=== PATIENT | male | born 1980 | race African-American/Black ===

== ENCOUNTER 2017-04-09 21:31 | Emergency (ER) | payer MEDICAID ==
--- NOTE | 2017-04-09 21:43 | ER Document Report ---
ED Seizure - General Mode of Arrival: Medic Information source: Transfer Record, Emergency Med Personnel, [facility] Records TRAVEL OUTSIDE OF THE [place] IN LAST 30 DAYS: No - HPI Patient complains to provider of: History of seizures <MAISHA RODRIGUEZ - Last Filed: 04/09/17 22:10> <KALEY LOPEZ - Last Filed: 04/09/17 23:49> - General Stated Complaint: POSSIBLE SEIZURE Time Seen by Provider: 04/09/17 21:39 Notes: Patient is a 36 year old male presenting to the emergency department for a possible seizure. Patient was brought in by EMS who reports the patient was not acting like himself all week. Patient has a history of TBI, hypertension, dementia, and seizures. Patient was found on the floor at his [facility] and staff are unsure if he had a seizure or not. Patient is non- verbal. Patient is supposed to be taking Keppra but had an undetectable level in the past. Patient has no known drug allergies. Patient is unresponsive and non-verbal so HPI and medical history are limited. (MAISHA RODRIGUEZ) - Related Data Allergies/Adverse Reactions: No Known Allergies Allergy (Verified 11/20/14 14:01) Past Medical History - General Information source: [facility] Records Cannot obtain history due to: Dementia, Other - non-verbal - Social History Smoking Status: Unknown if Ever Smoked Family History: None, Other - Unable to obtain secondary to TBI mentation Patient has suicidal ideation: No Patient has homicidal ideation: No - Past Medical History Cardiac Medical History: Reports: Hx Hypertension Neurological Medical History: Reports: Hx Cerebrovascular Accident, Hx Seizures Renal/ Medical History: Reports: Hx Renal Insufficiency GI Medical History: Reports: Hx Ulcer Psychiatric Medical History: Reports: Hx Dementia Surgical Hx: Negative - Immunizations Hx Diphtheria, Pertussis, Tetanus Vaccination: Yes Hx Pneumococcal Vaccination: 09/15/09 <MAISHA RODRIGUEZ - Last Filed: 04/09/17 22:10> Review of Systems - Review of Systems Constitutional: No symptoms reported EENT: No symptoms reported Cardiovascular: No symptoms reported Respiratory: No symptoms reported Gastrointestinal: No symptoms reported Genitourinary: No symptoms reported Male Genitourinary: No symptoms reported Musculoskeletal: See HPI Skin: No symptoms reported Hematologic/Lymphatic: No symptoms reported Neurological/Psychological: See HPI, Seizure -: Yes All other systems reviewed and negative <MAISHA RODRIGUEZ - Last Filed: 04/09/17 22:10> Physical Exam <MAISHA RODRIGUEZ - Last Filed: 04/09/17 22:10> <KALEY LOPEZ - Last Filed: 04/09/17 23:49> - Vital signs Vitals: Pulse Ox 100 04/09/17 21:38 - Notes Notes: GENERAL: Patient in non-verbal, moving around on the bed with contractures. HEAD: Normocephalic, atraumatic. EYES: Appear normal. Pupils equal, round, and reactive to light. ENT: Moist mucus membranes, tongue midline. NECK: Full range of motion. Supple. Trachea midline. LUNGS: Clear to auscultation bilaterally, no wheezes, rales, or rhonchi. No respiratory distress. HEART: Regular rate and rhythm. No murmurs, gallops, or rubs. ABDOMEN: Soft, non-tender. Non-distended. Normal bowel sounds. EXTREMITIES: Patient has choreoathetotic movement. Contractures of the upper extremities which are worse on the left than the right. Elbows are in flexion and passive straightening is almost possible on the left arm and is not possible on the right due to contractures. Supination of the forearms. Patient picks up legs straight up in the air and kicks them over the railing of the bed. NEUROLOGICAL: Non-verbal. SKIN: Warm, dry, normal turgor. (MAISHA RORDIGUEZ) Course <MAISHA RODRIGUEZ - Last Filed: 04/09/17 22:10> - Laboratory Result Diagrams: 04/09/17 22:30 04/09/17 22:30 <KALEY LOPEZ - Last Filed: 04/09/17 23:49> - Re-evaluation Re-evalutation: 04/09/17 23:43 The patient's CBC, Chem-12, and urinalysis are all unremarkable. He does not have a fever, he does not seem to be exhibiting seizure activity here. The Keppra level is pending as it is a send out. There was no injury detected on physical exam related to him being found on the floor. He will be discharged back to [facility], with recommendation he does not miss Keppra doses and they check with the lab for the Keppra level when it comes back. He should return to the emergency room if any new or worsening symptoms. (KALEY LOPEZ) - Vital Signs Vital signs: Temp Pulse Resp BP Pulse Ox 12 114/95 H 100 04/09/17 23:01 04/09/17 23:01 04/09/17 23:00 - Laboratory Laboratory results interpreted by me: 04/09/17 04/09/17 22:30 22:30 Hgb 13.0 L Eosinophils % 7.7 H Carbon Dioxide 20 L Anion Gap 21 H Calcium 10.5 H Discharge <MAISHA RODRIGUEZ - Last Filed: 04/09/17 22:10> <KALEY LOPEZ - Last Filed: 04/09/17 23:49> - Discharge Clinical Impression: Seizure disorder Fall Qualifiers: Encounter type: initial encounter Qualified Code(s): W19.XXXA - Unspecified fall, initial encounter Condition: Stable Disposition: HOME, SELF-CARE Additional Instructions: There was no injury found on physical exam today. The blood work was normal with no suggestion of infection. The Keppra level is a send out and should be back in a few days. The urine did not show signs of infection and does show he is well hydrated. Be sure not to miss any Keppra doses. Take fall precautions, as the patient did seem to be trying to get off of the stretcher. RETURN TO THE EMERGENCY ROOM IF ANY NEW OR WORSENING SYMPTOMS. Scribe Attestation: 04/09/17 23:48 I personally performed the services described in the documentation, reviewed and edited the documentation which was dictated to the scribe in my presence, and it accurately records my words and actions. (KALEY LOPEZ) Scribe Documentation - Scribe Written by Terrence:: Terrence Campa 21:41 acting as scribe for :: Job <MAISHA RODRIGUEZ - Last Filed: 04/09/17 22:10>
[2017-04-09 22:47] LABS: ABSOLUTE BASOPHILS # (AUTO) 0.1 10^3/uL (0.0-0.2); ABSOLUTE EOSINOPHILS # (AUTO) 0.5 10^3/uL (0.0-0.6); ABSOLUTE LYMPHOCYTES (AUTO) 2.1 10^3/uL (0.5-4.7); ABSOLUTE MONOCYTES (AUTO) 0.5 10^3/uL (0.1-1.4); ABSOLUTE NEUT (AUTO) 3.7 10^3/uL (1.7-8.2); BASOPHILS % (AUTO) 1.2 % (0-2); EOSINOPHILS % (AUTO) 7.7 % (0-6); HEMATOCRIT 39.2 % (37.9-51.0); HGB HCT DIFFERENCE -0.2; LYMPHOCYTES % (AUTO) 30.4 % (13-45); MEAN CORPUSCULAR HEMOGLOBIN 29.3 pg (27.0-33.4); MEAN CORPUSCULAR HGB CONC 33.3 g/dL (32.0-36.0); MEAN CORPUSCULAR VOLUME 88 fl (80-97); MONOCYTES % (AUTO) 6.9 % (3-13); RED BLOOD COUNT 4.44 10^6/uL (4.35-5.55); RED CELL DISTRIBUTION WIDTH 13.7 % (11.5-14.0); SEGMENTED NEUTROPHILS % (AUTO) 53.8 % (42-78); WHITE BLOOD COUNT 6.8 10^3/uL (4.0-10.5)
[2017-04-09 22:55] LABS: ALANINE AMINOTRANSFERASE 36 U/L (21-72); ALBUMIN 4.8 g/dL (3.5-5.0); ALKALINE PHOSPHATASE 54 U/L (38-126); ASPARTATE AMINO TRANSFERASE 41 U/L (17-59); BILIRUBIN,DIRECT 0.3 mg/dL (0.0-0.4); BILIRUBIN,TOTAL 0.4 mg/dL (0.2-1.3); BLOOD UREA NITROGEN 19 mg/dL (7-20); CALCIUM 10.5 mg/dL (8.4-10.2); CARBON DIOXIDE 20 mmol/L (22-30); CHLORIDE 99 mmol/L (98-107); CREATININE RESULT 0.79 mg/dL (0.52-1.25); GLUCOSE 84 mg/dL (75-110); MAGNESIUM 1.8 mg/dL (1.6-2.3); POTASSIUM 4.8 mmol/L (3.6-5.0)
[2017-04-09 22:56] LABS: APPEARANCE,URINE CLEAR; BILIRUBIN,URINE NEGATIVE (NEGATIVE); GLUCOSE, URINE NEGATIVE (NEGATIVE); KETONES,URINE NEGATIVE (NEGATIVE); LEUKOCYTE ESTERASE,URINE NEGATIVE (NEGATIVE); NITRITE,URINE NEGATIVE (NEGATIVE); PROTEIN,URINE NEGATIVE (NEGATIVE); URINE SPECIFIC GRAVITY 1.012; UROBILINOGEN,URINE NEGATIVE mg/dL (<2.0)
[2017-04-09 23:16] LABS: SODIUM 139.5 mmol/L (137-145)
[2017-04-09 23:19] LABS: ANION GAP 21 (5-19)
[2017-04-10 00:15] VITALS: BP 137/82
== END 2017-04-10 00:52 | disposition home or self-care (01) ==
LOC: ER 21:31
DX: G40.909 Epilepsy, unspecified, not intractable, without status epilepticus (principal); Z87.820 Personal history of traumatic brain injury; I10 Essential (primary) hypertension; F03.90 Unspecified dementia, unspecified severity, without behavioral disturbance, psychotic disturbance, mood disturbance, and anxiety; W19.XXXA Unspecified fall, initial encounter
CPT/HCPCS: 36415; 51701; 80053; 80177; 81001; 83735; 85025; 87040; 99285

== ENCOUNTER 2017-06-25 13:23 | Emergency (ER) | payer MEDICAID ==
--- NOTE | 2017-06-25 13:29 | ER Document Report ---
ED Seizure - General Mode of Arrival: Ambulatory Information source: Patient <KATHYA CHAO - Last Filed: 06/25/17 13:35> <KALEY LOPEZ - Last Filed: 06/25/17 18:06> - General Stated Complaint: POSSIBLE SEIZURE Notes: Patient is a 36-year-old male who presents to the emergency department today with complaints of multiple seizures prior to arrival. Patient has been seen here in the past for seizures and was supposed to be on Keppra according to records. According to records, patient's levels of Keppra in the past have been undetectable. The last time the patient was seen here, 3 months ago, the patient's Keppra levels were just barely therapeutic. Patient has a history of cortical blindness and CVA. Patient is demented, likely at baseline. Patient is a resident at [facility] and they were called today secondary to the patient "being lethargic". EMS reports on arrival, the patient began seizing. EMS reports the patient had multiple seizures before arrival here, lasting approximately 20 seconds long. EMS states the patient began grunting, arched his back, and had convulsions. According to staff at the [facility], they state the patient has been "not acting right" all week but it is unclear what exactly was not right. [facility] did state that other residents at [facility] have also had similar symptoms this week. (KATHYA CHAO) On the patient's last admission in May 2016, DO NOT INTUBATE, CPR only status. There are no records sent with the patient, however reviewing past ER visits and admissions, I was able to find one entry stating the patient only mumbled, and another entry which stated he answers questions with one word, yes. There was also documentation that that was his baseline, despite a history and physical on the same chart stating that he was alert and oriented. (KALEY LOPEZ) - Related Data Allergies/Adverse Reactions: No Known Allergies Allergy (Verified 11/20/14 14:01) Past Medical History - General Information source: [facility] Records Cannot obtain history due to: Dementia, Mentally challenged - Social History Smoking Status: Never Smoker Cigarette use (# per day): No Frequency of alcohol use: None Drug Abuse: None Lives with: Family Family History: None, Other - Unable to obtain secondary to TBI mentation - Past Medical History Cardiac Medical History: Reports: Hx Hypertension Neurological Medical History: Reports: Hx Cerebrovascular Accident, Hx Seizures Renal/ Medical History: Reports: Hx Renal Insufficiency GI Medical History: Reports: Hx Ulcer Psychiatric Medical History: Reports: Hx Dementia Surgical Hx: Negative - Immunizations Hx Diphtheria, Pertussis, Tetanus Vaccination: Yes Hx Pneumococcal Vaccination: 09/15/09 <KATHYA CHAO - Last Filed: 06/25/17 13:35> Pulmonary Medical History: Reports: None EENT Medical History: Reports: Eyes - Cortical blindness Endocrine Medical History: Reports: None <JOHNKALEY De Dios - Last Filed: 06/25/17 18:06> Review of Systems - Review of Systems -: Yes ROS unobtainable due to patient's medical condition <KATHYA CHAO - Last Filed: 06/25/17 13:35> - Review of Systems -: Yes ROS unobtainable due to patient's medical condition <JOHNKALEY - Last Filed: 06/25/17 18:06> Physical Exam <KATHYA CHAO - Last Filed: 06/25/17 13:35> - HEENT Head: Normocephalic, Atraumatic Eyes: Other - Patient is blind. There is no nystagmus or twitching of his eyes at this time. Pupils are 4 mm and sluggishly active. Pupils: PERRL Neck: Normal, Supple - Respiratory Respiratory status: Tachypnea Chest status: Nontender Breath sounds: Normal - Cardiovascular Rhythm: Regular, Tachycardia Heart sounds: Normal auscultation Murmur: No - Abdominal Inspection: Normal Distension: No distension Bowel sounds: Normal Tenderness: Nontender - There is no tenderness to deep palpation in all quadrants of the abdomen. No: Guarding - Genitourinary Inspection: Normal - Back Back: Normal - Extremities General upper extremity: Normal inspection, Normal temperature - Psychological Associated symptoms: Other - Cannot be evaluated due to the patient's underlying medical problems - Skin Skin Temperature: Warm Skin Moisture: Dry Skin Color: Normal <JOHNKALEY De Dios - Last Filed: 06/25/17 18:06> - Vital signs Vitals: Resp BP 37 H 127/77 H 06/25/17 13:24 06/25/17 13:24 - General Notes: The patient responds to painful noxious stimulus only. He does not talk. He is blind. At the time of arrival he is hyperventilating with respiratory rate of 40 and a heart rate of 133. (KALEY LOPEZ) - Neurological Notes: There is no hyperreflexia, Babinski test is negative, there is no clonus. He does seem to move all extremities. He is blind, he most likely is postictal, he did receive a total of 5 mg of Versed so a neurological evaluation is not particularly reliable at this time. ( KALEY LOPEZ) Course <ZHANNAKATHYA THURMAN - Last Filed: 06/25/17 13:35> - Laboratory Result Diagrams: 06/25/17 13:45 06/25/17 13:45 - Diagnostic Test Radiology reviewed: Image reviewed - Chest x-ray is unremarkable - EKG Interpretation by Me EKG shows normal: Sinus rhythm, [place], Intervals, ST-T Waves. abnormal: QRS Complexes - Inferior T-wave inversions Rate: Tachycardia - 131 When compared to previous EKG there are: Changes noted - The inferior T-wave inversions are new compared to the last EKG done here in May 2016. <KALEY LOPEZ - Last Filed: 06/25/17 18:06> - Re-evaluation Re-evalutation: 06/25/17 16:56 After the patient had received 1 L of IV fluid, and 1 amp of sodium bicarb, his respiratory rate was down to 20 and his heart rate was down to about 116. He was found to have a temperature at fell to 96.7 so the bear hugger was placed on him. 06/25/17 17:29 After discussing the patient with the hospitalist who felt the patient may need intubation and wanted him transferred, I ordered an ABG. The nurse was unable to obtain the blood gas, so I obtained the ABG from the right radial artery. It pumped up easily and was oxygenated red in color. 06/25/17 18:01 The patient was discussed with Dr. Street on 2 occasions, he is unwilling to admit the patietient, initially feeling the patient might need intubation, I found a note from May 2016 that the patient was a DO NOT INTUBATE, CPR only patient. The second call he stated that that the patient might need neurology services which we do not have at this facility. (KALEY LOPEZ) - Vital Signs Vital signs: Temp Pulse Resp BP Pulse Ox 97.1 F 19 114/65 99 06/25/17 14:02 06/25/17 17:24 06/25/17 17:24 06/25/17 17:24 - Laboratory Laboratory results interpreted by me: 06/25/17 06/25/17 06/25/17 13:45 13:45 13:45 WBC 13.2 H RBC 4.24 L Hgb 12.4 L Plt Count 523 H Absolute Neutrophils 9.1 H ABG pCO2 ABG pO2 ABG Total CO2 VBG pH VBG HCO3 Potassium 5.8 H Carbon Dioxide < 5 L* Lactic Acid 23.0 H Calcium 10.5 H Magnesium 2.5 H Creatine Kinase Urine Protein Urine Blood 06/25/17 06/25/17 06/25/17 13:45 14:05 15:20 WBC RBC Hgb Plt Count Absolute Neutrophils ABG pCO2 ABG pO2 ABG Total CO2 VBG pH 7.16 L* VBG HCO3 13.6 L Potassium Carbon Dioxide Lactic Acid Calcium Magnesium Creatine Kinase 500 H Urine Protein 30 H Urine Blood MODERATE H 06/25/17 17:25 WBC RBC Hgb Plt Count Absolute Neutrophils ABG pCO2 34.9 L ABG pO2 77.9 L ABG Total CO2 21.1 L VBG pH VBG HCO3 Potassium Carbon Dioxide Lactic Acid Calcium Magnesium Creatine Kinase Urine Protein Urine Blood - Transfer of Care Notes: 06/25/17 18:03 CT scan will be done prior to making phone calls to try to get someone somewhere to accept this patient. (KALEY LOPEZ) Critical Care Note - Critical Care Note Total time excluding time spent on procedures (mins): 45 <KALEY LOPEZ - Last Filed: 06/25/17 18:06> Discharge <KATHYA CHAO - Last Filed: 06/25/17 13:35> <KALEY LOPEZ - Last Filed: 06/25/17 18:06> - Discharge Clinical Impression: Recurrent seizures, Lactic acidosis Altered mental status Qualifiers: Altered mental status type: unspecified Qualified Code(s): R41.82 - Altered mental status, unspecified Scribe Documentation - Scribe Written by Scribe:: Terrence Rock, 06/25/2017 1342 acting as scribe for :: John <KATHYA CHAO - Last Filed: 06/25/17 13:35>
[2017-06-25 14:13] LABS: ABSOLUTE BASOPHILS # (AUTO) 0.1 10^3/uL (0.0-0.2); ABSOLUTE EOSINOPHILS # (AUTO) 0.6 10^3/uL (0.0-0.6); ABSOLUTE LYMPHOCYTES (AUTO) 2.6 10^3/uL (0.5-4.7); ABSOLUTE MONOCYTES (AUTO) 0.8 10^3/uL (0.1-1.4); ABSOLUTE NEUT (AUTO) 9.1 10^3/uL (1.7-8.2); EOSINOPHILS % (AUTO) 4.4 % (0-6); HEMATOCRIT 38.2 % (37.9-51.0); HEMOGLOBIN 12.4 g/dL (13.5-17.0); LYMPHOCYTES % (AUTO) 19.6 % (13-45); MEAN CORPUSCULAR HEMOGLOBIN 29.2 pg (27.0-33.4); MEAN CORPUSCULAR HGB CONC 32.4 g/dL (32.0-36.0); MEAN CORPUSCULAR VOLUME 90 fl (80-97); MONOCYTES % (AUTO) 6.3 % (3-13); RED BLOOD COUNT 4.24 10^6/uL (4.35-5.55); RED CELL DISTRIBUTION WIDTH 13.8 % (11.5-14.0); SEGMENTED NEUTROPHILS % (AUTO) 68.7 % (42-78); WHITE BLOOD COUNT 13.2 10^3/uL (4.0-10.5)
[2017-06-25 14:21] LABS: ALANINE AMINOTRANSFERASE 27 U/L (21-72); ALBUMIN 4.8 g/dL (3.5-5.0); ALKALINE PHOSPHATASE 56 U/L (38-126); ASPARTATE AMINO TRANSFERASE 29 U/L (17-59); BILIRUBIN,DIRECT 0.3 mg/dL (0.0-0.4); BILIRUBIN,TOTAL 0.3 mg/dL (0.2-1.3); BLOOD UREA NITROGEN 13 mg/dL (7-20); CALCIUM 10.5 mg/dL (8.4-10.2); CHLORIDE 100 mmol/L (98-107); CREATININE RESULT 1.18 mg/dL (0.52-1.25); GLUCOSE 84 mg/dL (75-110); MAGNESIUM 2.5 mg/dL (1.6-2.3); POTASSIUM 5.8 mmol/L (3.6-5.0); SODIUM 142.1 mmol/L (137-145); TOTAL PROTEIN 7.7 g/dL (6.3-8.2)
[2017-06-25] MEDS ORDERED: LEVETIRACETAM 500 MG/NACL-ISO 500 MG/100 ML RTUPB IV ONE (14:24)
--- NOTE | 2017-06-25 14:30 | RADIOLOGY REPORT (SQ) ---
EXAM DESCRIPTION: CHEST SINGLE VIEW COMPLETED DATE/TIME: 06/25/2017 1:55 pm REASON FOR STUDY: POST ICTAL , SEIZURE COMPARISON: 02/05/2012, 02/14/2012, 06/02/2016 EXAM PARAMETERS: NUMBER OF VIEWS: One view. TECHNIQUE: Single frontal radiographic view of the chest acquired. RADIATION DOSE: NA LIMITATIONS: None. FINDINGS: LUNGS AND PLEURA: Obstructive lung disease, hyperinflation in the right mid lung. No acute infiltrates. No pleural effusion. No pneumothorax. MEDIASTINUM AND HILAR STRUCTURES: No masses. Contour normal. HEART AND VASCULAR STRUCTURES: Heart normal in size. Normal vasculature. BONES: No acute findings. HARDWARE: None in the chest. OTHER: No other significant finding. IMPRESSION: No acute changes TECHNICAL DOCUMENTATION: JOB ID: [id number]
[2017-06-25 14:33] LABS: APPEARANCE,URINE CLEAR; BILIRUBIN,URINE NEGATIVE (NEGATIVE); GLUCOSE, URINE NEGATIVE (NEGATIVE); KETONES,URINE NEGATIVE (NEGATIVE); LEUKOCYTE ESTERASE,URINE NEGATIVE (NEGATIVE); NITRITE,URINE NEGATIVE (NEGATIVE); PROTEIN,URINE 30 mg/dL (NEGATIVE); URINE SPECIFIC GRAVITY 1.009; UROBILINOGEN,URINE NEGATIVE mg/dL (<2.0)
[2017-06-25 14:43] LABS: CARBON DIOXIDE < 5 mmol/L (22-30)
[2017-06-25] MEDS ORDERED: LORAZEPAM INJ 2 MG/1 ML VIAL ONE (14:51)
[2017-06-25] MEDS ORDERED: LORAZEPAM INJ 2 MG/1 ML VIAL IV ONE (14:57)
[2017-06-25] MEDS ORDERED: NORMAL SALINE 1000 ML 1,000 ML IV ONE (15:10)
[2017-06-25 15:56] LABS: VENOUS BLOOD BASE EXCESS -14.3 mmol/L; VENOUS BLOOD HCO3 13.6 mmol/L (20-32); VENOUS BLOOD PCO2 38.9 mmHg (35-63)
[2017-06-25 15:57] LABS: VENOUS BLOOD PH 7.16 (7.30-7.42)
[2017-06-25] MEDS ORDERED: SODIUM BICARBONATE 8.4% INJ 50 MEQ/50 ML DISP.SYRIN IV ONE (15:58)
[2017-06-25 16:24] LABS: ADD ON TESTING BLD IN LAB ACKNOWLEDGE
[2017-06-25 16:48] LABS: CREATINE KINASE 500 U/L (55-170)
[2017-06-25] MEDS ORDERED: CEFTRIAXONE 1 GM/D5W RTU 1 GM/50 ML RTUPB IV ONE (17:29)
[2017-06-25 17:40] LABS: ARTERIAL BLOOD BASE EXCESS -4.5 mmol/L; ARTERIAL BLOOD O2 SATURATION 95.4 % (94-98)
--- NOTE | 2017-06-25 18:24 | ER Document Report ---
ED General - General Chief Complaint: Probable Seizure Stated Complaint: POSSIBLE SEIZURE Time Seen by Provider: 06/25/17 13:33 Mode of Arrival: Ambulatory Notes: Received patient did sign out at [address] and disposal. Patient reportedly had altered mental status at nursing facility. Off of his baseline. Reportedly having seizures on arrival. EMS gave medications. Has been observed in the ED where he received an initial 2 mg of Ativan. Had a profound acidosis at 7.1 with extremely elevated lactic acid. Patient received fluids and monitoring. Was consulted for admission but admission was refused. TRAVEL OUTSIDE OF THE [place] IN LAST 30 DAYS: No - Related Data Allergies/Adverse Reactions: No Known Allergies Allergy (Verified 11/20/14 14:01) Past Medical History - General Information source: Legal Guardian, [facility] Records - Social History Smoking Status: Never Smoker Cigarette use (# per day): No Frequency of alcohol use: None Drug Abuse: None Lives with: Family Family History: None, Other - Unable to obtain secondary to TBI mentation - Past Medical History Cardiac Medical History: Reports: Hx Hypertension Pulmonary Medical History: Reports: None EENT Medical History: Reports: Eyes - Cortical blindness Neurological Medical History: Reports: Hx Cerebrovascular Accident, Hx Seizures Endocrine Medical History: Reports: None Renal/ Medical History: Reports: Hx Renal Insufficiency. Denies: Hx Peritoneal Dialysis GI Medical History: Reports: Hx Ulcer Psychiatric Medical History: Reports: Hx Dementia, Hx Depression Surgical Hx: Negative - Immunizations Hx Diphtheria, Pertussis, Tetanus Vaccination: Yes Hx Pneumococcal Vaccination: 09/15/09 Review of Systems - Review of Systems -: Yes ROS unobtainable due to patient's medical condition Physical Exam - Vital signs Vitals: Resp BP 37 H 127/77 H 06/25/17 13:24 06/25/17 13:24 Interpretation: Normal - General General appearance: Lethargic, Unresponsive. No: Alert - HEENT Head: Normocephalic, Atraumatic Eyes: Normal - Respiratory Respiratory status: No respiratory distress Chest status: Nontender Breath sounds: Normal Chest palpation: Normal - Cardiovascular Rhythm: Regular Heart sounds: Normal auscultation Murmur: No - Abdominal Inspection: Normal Distension: No distension Bowel sounds: Normal Tenderness: Nontender Organomegaly: No organomegaly - Back Back: Normal, Nontender - Extremities General upper extremity: Normal inspection, Nontender, Normal color, Normal temperature. No: Normal ROM - Patient with bilateral upper extremity contractures General lower extremity: Normal inspection, Nontender, Normal color, Normal temperature. No: Normal ROM, Normal weight bearing, Suzan's sign - Neurological Neuro grossly intact: Yes Cognition: Normal, Inattentive Orientation: AAOx4. No: Disoriented to person, Disoriented to place, Disoriented to time, Disoriented to events Tin Coma Scale Eye Opening: Spontaneous [place] Coma Scale Verbal: Incomprehensible Tin Coma Scale Motor: Abnormal Flexion Tin Coma Scale Total: 9 Speech: Normal. No: Dysarthria, Expressive aphasia Motor strength normal: No: LUE, RUE, LLE, RLE Sensory: Other. No: Normal - Unable to cooperate - Psychological Associated symptoms: Uncooperative. No: Normal affect, Normal mood - Skin Skin Temperature: Warm - No obvious skin lesions Skin Moisture: Dry Skin Color: Normal Course - Re-evaluation Re-evalutation: 06/25/17 19:46 Labs- All tests 24 hr 06/25/17 06/25/17 06/25/17 13:45 13:45 13:45 WBC 13.2 H RBC 4.24 L Hgb 12.4 L Hct 38.2 MCV 90 MCH 29.2 MCHC 32.4 RDW 13.8 Plt Count 523 H Seg Neutrophils % 68.7 Lymphocytes % 19.6 Monocytes % 6.3 Eosinophils % 4.4 Basophils % 1.0 Absolute Neutrophils 9.1 H Absolute Lymphocytes 2.6 Absolute Monocytes 0.8 Absolute Eosinophils 0.6 Absolute Basophils 0.1 Carbonic Acid HCO3/H2CO3 Ratio ABG pH ABG pCO2 ABG pO2 ABG HCO3 ABG Total CO2 ABG O2 Saturation ABG Base Excess VBG pH VBG pCO2 VBG HCO3 VBG Base Excess FiO2 Sodium 142.1 Potassium 5.8 H Chloride 100 Carbon Dioxide < 5 L* Anion Gap Not Reportable BUN 13 Creatinine 1.18 Est GFR ( Amer) > 60 Est GFR (Non-Af Amer) > 60 Glucose 84 Lactic Acid 23.0 H Calcium 10.5 H Magnesium 2.5 H Total Bilirubin 0.3 Direct Bilirubin 0.3 Indirect Bilirubin Not Reportable Neonat Total Bilirubin Not Reportable AST 29 ALT 27 Alkaline Phosphatase 56 Creatine Kinase Total Protein 7.7 Albumin 4.8 Urine Color Urine Appearance Urine pH Ur Specific [place] Urine Protein Urine Glucose (UA) Urine Ketones Urine Blood Urine Nitrite Urine Bilirubin Urine Urobilinogen Ur Leukocyte Esterase Urine WBC (Auto) Urine RBC (Auto) Squamous Epi Cells Auto Urine Mucus (Auto) Urine Ascorbic Acid 06/25/17 06/25/17 06/25/17 13:45 14:05 15:20 WBC RBC Hgb Hct MCV MCH MCHC RDW Plt Count Seg Neutrophils % Lymphocytes % Monocytes % Eosinophils % Basophils % Absolute Neutrophils Absolute Lymphocytes Absolute Monocytes Absolute Eosinophils Absolute Basophils Carbonic Acid HCO3/H2CO3 Ratio ABG pH ABG pCO2 ABG pO2 ABG HCO3 ABG Total CO2 ABG O2 Saturation ABG Base Excess VBG pH 7.16 L* VBG pCO2 38.9 VBG HCO3 13.6 L VBG Base Excess -14.3 FiO2 Sodium Potassium Chloride Carbon Dioxide Anion Gap BUN Creatinine Est GFR ( Amer) Est GFR (Non-Af Amer) Glucose Lactic Acid Calcium Magnesium Total Bilirubin Direct Bilirubin Indirect Bilirubin Neonat Total Bilirubin AST ALT Alkaline Phosphatase Creatine Kinase 500 H Total Protein Albumin Urine Color STRAW Urine Appearance CLEAR Urine pH 6.0 Ur Specific [place] 1.009 Urine Protein 30 H Urine Glucose (UA) NEGATIVE Urine Ketones NEGATIVE Urine Blood MODERATE H Urine Nitrite NEGATIVE Urine Bilirubin NEGATIVE Urine Urobilinogen NEGATIVE Ur Leukocyte Esterase NEGATIVE Urine WBC (Auto) 1 Urine RBC (Auto) 1 Squamous Epi Cells Auto <1 Urine Mucus (Auto) RARE Urine Ascorbic Acid NEGATIVE 06/25/17 06/25/17 17:25 17:54 WBC RBC Hgb Hct MCV MCH MCHC RDW Plt Count Seg Neutrophils % Lymphocytes % Monocytes % Eosinophils % Basophils % Absolute Neutrophils Absolute Lymphocytes Absolute Monocytes Absolute Eosinophils Absolute Basophils Carbonic Acid 1.05 HCO3/H2CO3 Ratio 19:1 ABG pH 7.38 ABG pCO2 34.9 L ABG pO2 77.9 L ABG HCO3 20.0 ABG Total CO2 21.1 L ABG O2 Saturation 95.4 ABG Base Excess -4.5 VBG pH VBG pCO2 VBG HCO3 VBG Base Excess FiO2 ROOM AIR Sodium Potassium Chloride Carbon Dioxide Anion Gap BUN Creatinine Est GFR ( Amer) Est GFR (Non-Af Amer) Glucose Lactic Acid 3.5 H Calcium Magnesium Total Bilirubin Direct Bilirubin Indirect Bilirubin Neonat Total Bilirubin AST ALT Alkaline Phosphatase Creatine Kinase Total Protein Albumin Urine Color Urine Appearance Urine pH Ur Specific [place] Urine Protein Urine Glucose (UA) Urine Ketones Urine Blood Urine Nitrite Urine Bilirubin Urine Urobilinogen Ur Leukocyte Esterase Urine WBC (Auto) Urine RBC (Auto) Squamous Epi Cells Auto Urine Mucus (Auto) Urine Ascorbic Acid Chest X-Ray 06/25/17 13:37 IMPRESSION: No acute changes Head CT 06/25/17 18:20 IMPRESSION: No evidence of acute ischemic event or intracranial hemorrhage. Re - demonstration of large areas of encephalomalacia involving the bilateral temporal, parietal, and occipital lobes, consistent with sequela of remote ischemic events. EVIDENCE OF ACUTE STROKE: NO. 06/25/17 21:33 Patient has been accepted as a admit to the PCU bed seventh floor stroke unit at [facility], Dr. Mark is the accepting. Awaiting transfer at this time - Vital Signs Vital signs: Temp Pulse Resp BP Pulse Ox 97.1 F 16 115/70 99 06/25/17 14:02 06/25/17 22:01 06/25/17 22:01 06/25/17 22:01 - Laboratory Result Diagrams: 06/25/17 13:45 06/25/17 13:45 Laboratory results interpreted by me: 06/25/17 06/25/17 06/25/17 13:45 13:45 13:45 WBC 13.2 H RBC 4.24 L Hgb 12.4 L Plt Count 523 H Absolute Neutrophils 9.1 H ABG pCO2 ABG pO2 ABG Total CO2 ABG O2 Saturation VBG pH VBG HCO3 Potassium 5.8 H Carbon Dioxide < 5 L* Lactic Acid 23.0 H Calcium 10.5 H Magnesium 2.5 H Creatine Kinase Urine Protein Urine Blood 06/25/17 06/25/17 06/25/17 13:45 14:05 15:20 WBC RBC Hgb Plt Count Absolute Neutrophils ABG pCO2 ABG pO2 ABG Total CO2 ABG O2 Saturation VBG pH 7.16 L* VBG HCO3 13.6 L Potassium Carbon Dioxide Lactic Acid Calcium Magnesium Creatine Kinase 500 H Urine Protein 30 H Urine Blood MODERATE H 06/25/17 06/25/17 06/25/17 17:25 17:54 20:13 WBC RBC Hgb Plt Count Absolute Neutrophils ABG pCO2 34.9 L ABG pO2 77.9 L 135.6 H ABG Total CO2 21.1 L 21.8 L ABG O2 Saturation 98.7 H VBG pH VBG HCO3 Potassium Carbon Dioxide Lactic Acid 3.5 H Calcium Magnesium Creatine Kinase Urine Protein Urine Blood Discharge - Discharge Clinical Impression: Recurrent seizures, Lactic acidosis Altered mental status Qualifiers: Altered mental status type: unspecified Qualified Code(s): R41.82 - Altered mental status, unspecified Disposition: [facility] Admitting Provider: Jas
--- NOTE | 2017-06-25 19:08 | RADIOLOGY REPORT (SQ) ---
EXAM DESCRIPTION: CT HEAD WITHOUT COMPLETED DATE/TIME: 06/25/2017 6:41 pm REASON FOR STUDY: AMS COMPARISON: [id number], 10/03/2011 TECHNIQUE: Axial images acquired through the brain without intravenous contrast. Images reviewed wi th bone, brain and subdural windows. Images stored on PACS. All CT scanners at this facility use dose modulation, iterative reconstruction, and/or weight based d osing when appropriate to reduce radiation dose to as low as reasonably achievable (ALARA). [facility]: Dose Right [facility]: CareDose [facility]: Dose Right [facility]: Teradose 4D [facility]: [employer] RADIATION DOSE: Up-to-date CT equipment and radiation dose reduction techniques were employed. CTDIv ol: 64.6 mGy. DLP: 1034 mGy-cm. mGy. LIMITATIONS: None. FINDINGS: VENTRICLES: Prominent. CEREBRUM: No masses. No hemorrhage. No midline shift. No evidence for acute infarction. Re- demons tration of large areas of encephalomalacia involving bilateral temporal, parietal, and occipital lobe s. CEREBELLUM: No masses. No hemorrhage. No alteration of density. No evidence for acute infarction. EXTRAAXIAL SPACES: No fluid collections. No masses. ORBITS AND GLOBE: No intra- or extraconal masses. Normal contour of globe without masses. CALVARIUM: No fracture. PARANASAL SINUSES: No fluid or mucosal thickening. SOFT TISSUES: No mass or hematoma. OTHER: No other significant finding. IMPRESSION: No evidence of acute ischemic event or intracranial hemorrhage. Re- demonstration of la rge areas of encephalomalacia involving the bilateral temporal, parietal, and occipital lobes, consis tent with sequela of remote ischemic events. EVIDENCE OF ACUTE STROKE: NO. COMMENT: Quality ID # [id number]: Final reports with documentation of one or more dose reduction techniques (e.g., Automated exposure control, adjustment of the mA and/or kV according to patient size, use of iterative reconstruction technique) TECHNICAL DOCUMENTATION: JOB ID: [id number]- All Rights Reserved
[2017-06-25 20:32] LABS: PROTHROMBIN TIME 13.7 SEC (11.4-15.4)
[2017-06-25 21:44] LABS: ARTERIAL BLOOD BASE EXCESS -3.5 mmol/L; ARTERIAL BLOOD O2 SATURATION 98.7 % (94-98)
[2017-06-26 00:24] VITALS: BP 123/78
--- NOTE | 2017-06-27 08:08 | EKG REPORT ---
SEVERITY:- ABNORMAL ECG - SINUS TACHYCARDIA ANTERIOR INFARCT, AGE INDETERMINATE VS LVH ABNORMAL T, CONSIDER ISCHEMIA, INFERIOR LEADS : Confirmed by: Deejay May 27-Jun-2017 08:08:31
== END 2017-06-26 00:27 | disposition short-term general hospital (02) ==
LOC: ER 13:23
DX: G40.909 Epilepsy, unspecified, not intractable, without status epilepticus (principal); E87.2 Acidosis; G93.89 Other specified disorders of brain; R41.82 Altered mental status, unspecified; I10 Essential (primary) hypertension; Z86.73 Personal history of transient ischemic attack (TIA), and cerebral infarction without residual deficits
CPT/HCPCS: 99291; 96361; 96375; 96365; 96367; 36415; 87040; 80177; 82803 ×2; 82550; 83605 ×2; 83735; 85025; 85610; 87077; 80053; 81001; 71010; 70450; 93010; J2060; J3490; J7030; J0696; J1953; 87186

== ENCOUNTER 2017-10-11 19:37 | Emergency (ER) | payer MEDICAID ==
[2017-10-11] MEDS ORDERED: NORMAL SALINE 1000 ML 1,000 ML IV ONE ×2 (20:25→23:39)
[2017-10-11 20:53] LABS: ABSOLUTE BASOPHILS # (AUTO) 0.1 10^3/uL (0.0-0.2); ABSOLUTE EOSINOPHILS # (AUTO) 0.4 10^3/uL (0.0-0.6); ABSOLUTE LYMPHOCYTES (AUTO) 0.9 10^3/uL (0.5-4.7); ABSOLUTE MONOCYTES (AUTO) 0.7 10^3/uL (0.1-1.4); ABSOLUTE NEUT (AUTO) 5.9 10^3/uL (1.7-8.2); BASOPHILS % (AUTO) 0.9 % (0-2); EOSINOPHILS % (AUTO) 4.7 % (0-6); HEMATOCRIT 40.3 % (37.9-51.0); HEMOGLOBIN 13.6 g/dL (13.5-17.0); LYMPHOCYTES % (AUTO) 11.7 % (13-45); MEAN CORPUSCULAR HEMOGLOBIN 28.7 pg (27.0-33.4); MEAN CORPUSCULAR HGB CONC 33.7 g/dL (32.0-36.0); MEAN CORPUSCULAR VOLUME 85 fl (80-97); MONOCYTES % (AUTO) 8.8 % (3-13); PLATELET COUNT 441 10^3/uL (150-450); RED BLOOD COUNT 4.74 10^6/uL (4.35-5.55); RED CELL DISTRIBUTION WIDTH 15.1 % (11.5-14.0); SEGMENTED NEUTROPHILS % (AUTO) 73.9 % (42-78); TOTAL CELLS COUNTED % (AUTO) 100 %
[2017-10-11 20:57] LABS: VENOUS BLOOD BASE EXCESS -3.5 mmol/L; VENOUS BLOOD PCO2 47.2 mmHg (35-63); VENOUS BLOOD PH 7.31 (7.30-7.42)
--- NOTE | 2017-10-11 21:01 | ER Document Report ---
ED General - General Chief Complaint: Nausea/Vomiting/Diarrhea Stated Complaint: NAUSEA,VOMITING Time Seen by Provider: 10/11/17 19:50 Cannot obtain history due to: Mentally challenged, Other - Non-verbal Notes: Patient is a 36-year-old male with a past medical history of traumatic brain injury, nonverbal, nonambulatory at baseline. He presents with reports of fever , vomiting and diarrhea. He also had a seizure immediately prior to arrival. He has a history of seizures at baseline. He currently resides in the [facility]. Multiple additional residents have been sick with same symptoms. History is otherwise limited as patient is nonverbal. TRAVEL OUTSIDE OF THE [place] IN LAST 30 DAYS: No - Related Data Allergies/Adverse Reactions: No Known Allergies Allergy (Verified 11/20/14 14:01) Past Medical History - General Information source: Transfer Record, Emergency Med Personnel Cannot obtain history due to: Mentally challenged - Social History Smoking Status: Never Smoker Frequency of alcohol use: None Drug Abuse: None Lives with: Intermediate Family History: Reviewed & Not Pertinent, Other - Unable to obtain secondary to TBI mentation - Past Medical History Cardiac Medical History: Reports: Hx Hypertension Neurological Medical History: Reports: Hx Cerebrovascular Accident, Hx Seizures Renal/ Medical History: Reports: Hx Renal Insufficiency. Denies: Hx Peritoneal Dialysis GI Medical History: Reports: Hx Ulcer Psychiatric Medical History: Reports: Hx Dementia, Hx Depression - Immunizations Hx Diphtheria, Pertussis, Tetanus Vaccination: Yes Hx Pneumococcal Vaccination: 09/15/09 Review of Systems - Review of Systems -: Yes ROS unobtainable due to patient's medical condition Physical Exam - Vital signs Vitals: Resp 17 10/11/17 19:42 Interpretation: Tachycardic, Febrile Notes: PHYSICAL EXAMINATION: GENERAL: Chronically ill, contracted, nonverbal, no distress HEAD: Atraumatic, normocephalic. EYES: Pupils equal round and reactive to light, extraocular movements intact, sclera anicteric, conjunctiva are normal. ENT: nares patent, oropharynx clear without exudates. Moderately dry mucous membranes. NECK: supple without lymphadenopathy LUNGS: Breath sounds clear to auscultation bilaterally and equal. No wheezes rales or rhonchi. HEART: Regular tachycardia without murmurs ABDOMEN: Soft, nontender, normoactive bowel sounds. No guarding, no rebound. No masses appreciated. EXTREMITIES: Contracted in all 4 extremities NEUROLOGICAL: Does not follow commands. PSYCH: Nonverbal SKIN: Warm, Dry, normal turgor, no skin breakdown noted in the sacral region, buttocks or low back. Course - Re-evaluation Re-evalutation: 10/11/17 21:00 Patient is a chronically ill 36-year-old male nonverbal, bedbound at baseline who presents with nausea, vomiting, diarrhea and fever from his nursing facility. He also apparently had a witnessed seizure today. He does have a history of seizures at baseline. Another resident at the same facility is also arrived with the same symptoms. Proceed with labs, IV fluids, chest x-ray, flu testing, and reassess the patient. 10/12/17 00:41 Labs are all unremarkable with exception initially of an elevated lactate. I suspect that this is secondary to the patient having a seizure immediately prior to arrival as on a repeat lactate several hours after the initial it has completely normalized at 1.7. The only intervention was IV fluids. Patient has no obvious source for his temperature. Chest x-ray is clear, urinalysis unremarkable, skin exam without any evidence of decubitus ulcers or wounds, no cellulitis, throat exam unremarkable. Patient has not had any further episodes of vomiting or diarrhea here in the emergency department. I suspect that he likely has influenza or similar viral infection despite a negative flu test as our flu sensitivity this year is quite low. Again several residents in his facility have had the exact same symptoms including a patient that I saw at the same time as this patient. Will discharge back to the facility with strict return precautions and follow-up recommendations. - Vital Signs Vital signs: Temp Pulse Resp BP Pulse Ox 100.8 F H 18 166/92 H 99 10/12/17 02:09 10/12/17 02:09 10/12/17 02:09 10/12/17 02:09 - Laboratory Result Diagrams: 10/11/17 20:40 10/11/17 20:40 Laboratory results interpreted by me: 10/11/17 10/11/17 10/11/17 20:40 20:40 20:40 RDW 15.1 H Lymphocytes % 11.7 L BUN 25 H Lactic Acid 4.4 H Calcium 11.2 H - Diagnostic Test Radiology reviewed: Image reviewed, Reports reviewed Radiology results interpreted by me: 10/12/17 00:40 Chest x-ray: No acute infiltrate or pneumothorax Discharge - Discharge Clinical Impression: Seizure disorder, Vomiting and diarrhea Fever Qualifiers: Fever type: unspecified Qualified Code(s): R50.9 - Fever, unspecified Condition: Stable Disposition: HOME, SELF-CARE Additional Instructions: Your symptoms are likely due to a viral infection either influenza or similar virus. The only treatment at this time is supportive care including drinking plenty of fluids, Tylenol and ibuprofen, as well as nausea medicines which you will be sent home with. Your symptoms will likely last for 7-10 days. Return for worsening of your symptoms, inability to tolerate oral fluids, or any other symptoms that are concerning. Prescriptions: Ondansetron [Zofran Odt 4 mg Tablet] 1 - 2 tab PO Q4H PRN #15 tab.rapdis PRN Reason: For Nausea/Vomiting Referrals: PEGGY SÁNCHEZ MD [Primary Care Provider] - Follow up as needed
[2017-10-11 21:14] LABS: ANION GAP 16 (5-19); BLOOD UREA NITROGEN 25 mg/dL (7-20); CALCIUM 11.2 mg/dL (8.4-10.2); CARBON DIOXIDE 23 mmol/L (22-30); CHLORIDE 101 mmol/L (98-107); GLUCOSE 98 mg/dL (75-110); SODIUM 139.6 mmol/L (137-145)
--- NOTE | 2017-10-11 21:16 | RADIOLOGY REPORT (SQ) ---
EXAM DESCRIPTION: CHEST SINGLE VIEW COMPLETED DATE/TIME: 10/11/2017 8:49 pm REASON FOR STUDY: fever, cough COMPARISON: 2017. NUMBER OF VIEWS: Slight rotation to the right. TECHNIQUE: Single frontal radiographic view of the chest acquired. LIMITATIONS: None. FINDINGS: LUNGS AND PLEURA: No opacities, masses or pneumothorax. No pleural effusion. MEDIASTINUM AND HILAR STRUCTURES: No masses. Contour normal. HEART AND VASCULAR STRUCTURES: Heart normal in size. Normal vasculature. BONES: No acute findings. HARDWARE: None in the chest. OTHER: No other significant finding. IMPRESSION: NO SIGNIFICANT RADIOGRAPHIC FINDING IN THE CHEST. TECHNICAL DOCUMENTATION: JOB ID: [id number] [employer]- All Rights Reserved
[2017-10-11 22:37] LABS: A TYPE INFLUENZA AG NEGATIVE (NEGATIVE); B INFLUENZA AG NEGATIVE (NEGATIVE)
[2017-10-11 23:53] LABS: APPEARANCE,URINE CLEAR; BILIRUBIN,URINE NEGATIVE (NEGATIVE); COLOR,URINE YELLOW; GLUCOSE, URINE NEGATIVE (NEGATIVE); KETONES,URINE NEGATIVE (NEGATIVE); LEUKOCYTE ESTERASE,URINE NEGATIVE (NEGATIVE); NITRITE,URINE NEGATIVE (NEGATIVE); PROTEIN,URINE NEGATIVE (NEGATIVE); URINE SPECIFIC GRAVITY 1.018; UROBILINOGEN,URINE NEGATIVE mg/dL (<2.0)
[2017-10-12] MEDS ORDERED: ACETAMINOPHEN 325 MG SUPP.RECT PR ONE (00:39)
[2017-10-12 02:52] VITALS: BP 136/93
== END 2017-10-12 02:50 | disposition home or self-care (01) ==
LOC: ER 19:37
DX: G40.909 Epilepsy, unspecified, not intractable, without status epilepticus (principal); R11.2 Nausea with vomiting, unspecified; R19.7 Diarrhea, unspecified; R50.9 Fever, unspecified; I10 Essential (primary) hypertension; Z87.820 Personal history of traumatic brain injury; Z86.73 Personal history of transient ischemic attack (TIA), and cerebral infarction without residual deficits
CPT/HCPCS: 99284; 96360; 36415; 87040; 87086; 83605 ×2; 85025; 80048; 81001; 82803; 87804; 71045; J3490; J7030

== ENCOUNTER 2017-11-10 18:38 | Emergency (ER) | payer MEDICAID ==
--- NOTE | 2017-11-10 18:57 | ER Document Report ---
ED Fall - General Mode of Arrival: Medic Information source: Emergency Med Personnel, [facility] Records, Outside Facility Records TRAVEL OUTSIDE OF THE [place] IN LAST 30 DAYS: No - HPI Patient complains to provider of: Fall Occurred: This evening Associated symptoms: Other - see notes above <ZAFAR WALDROP - Last Filed: 11/10/17 20:49> <NESTORJO ANN AI - Last Filed: 11/11/17 03:28> - General Chief Complaint: Fall Stated Complaint: FALL;NECK PAIN Time Seen by Provider: 11/10/17 18:48 Notes: Patient is non-verbal at baseline. 36 year old male with history of seizures and CVA presents to the ED via EMS after suffering a fall at his living assistance facility earlier this evening. EMS reports that the patient suffered no obvious injuries and is currently at baseline. The living facility reports that the patient had a seizure which triggered him to fall out of bed. Facility also states that the patient might have had a stroke yesterday. (ZAFAR WALDROP) - Related data Allergies/Adverse Reactions: No Known Allergies Allergy (Verified 11/20/14 14:01) Past Medical History - General Information source: [facility] Records - Social History Smoking Status: Unknown if Ever Smoked Family History: Reviewed & Not Pertinent, Other - Unable to obtain secondary to TBI mentation - Past Medical History Cardiac Medical History: Reports: Hx Hypertension Neurological Medical History: Reports: Hx Cerebrovascular Accident, Hx Seizures Renal/ Medical History: Reports: Hx Renal Insufficiency. Denies: Hx Peritoneal Dialysis GI Medical History: Reports: Hx Ulcer Psychiatric Medical History: Reports: Hx Dementia, Hx Depression - Immunizations Hx Diphtheria, Pertussis, Tetanus Vaccination: Yes Hx Pneumococcal Vaccination: 09/15/09 <ZAFAR WALDROP - Last Filed: 11/10/17 20:49> Review of Systems - Review of Systems -: Yes ROS unobtainable due to patient's medical condition Constitutional: Other - Fall Neurological/Psychological: Seizure <ZAFAR WALDROP - Last Filed: 11/10/17 20:49> Physical Exam - General General appearance: Alert In distress: None - HEENT Head: Normocephalic, Atraumatic Eyes: Normal Extraocular movements intact: Yes Pupils: PERRL - Respiratory Respiratory status: No respiratory distress Breath sounds: Normal - Cardiovascular Rhythm: Regular Heart sounds: Normal auscultation - Abdominal Inspection: Normal Tenderness: Nontender - Back Back: Normal - Extremities General upper extremity: Other - Chronic contractures to the bilateral upper extremities. No pain with ROM.. No: Normal inspection General lower extremity: Normal ROM, Other - No pain with ROM.. No: Normal inspection Elbow: Other - Abrasion to the right elbow. No: Normal - Neurological Neuro grossly intact: Yes - At baseline Speech: No: Normal - nonverbal secondary to old CVA - Skin Skin Temperature: Warm Skin Moisture: Dry Skin Color: Normal <ZAFAR WALDROP - Last Filed: 11/10/17 20:49> - Vital signs Vitals: Temp Pulse Resp BP Pulse Ox 97.7 F 89 16 143/86 H 100 11/10/17 19:01 11/10/17 19:01 11/10/17 19:01 11/10/17 19:01 11/10/17 19:01 Course - Laboratory Result Diagrams: 11/10/17 20:05 11/10/17 20:05 <ZAFAR WALDROP - Last Filed: 11/10/17 20:49> - Laboratory Result Diagrams: 11/10/17 20:05 11/10/17 20:05 - Diagnostic Test Radiology reviewed: Reports reviewed <JO ANN BAEZ - Last Filed: 11/11/17 03:28> - Re-evaluation Re-evalutation: Patient with no signs of trauma. Blood work within normal limits. Head CT and chest x-ray with no acute findings. Patient is at his cognitive baseline. Vitals are stable. Patient will be discharged back to his facility. (JO ANN BAEZ) - Vital Signs Vital signs: Temp Pulse Resp BP Pulse Ox 98.6 F 85 16 137/81 H 98 11/11/17 00:19 11/11/17 00:19 11/11/17 00:19 11/11/17 00:19 11/11/17 00:19 - Laboratory Laboratory results interpreted by ky: 11/10/17 11/10/17 20:05 20:05 Hgb 13.2 L RDW 15.4 H Eosinophils % 7.2 H Carbon Dioxide 19 L Discharge <ZAFAR WALDROP - Last Filed: 11/10/17 20:49> <JO ANN BAEZ - Last Filed: 11/11/17 03:28> - Discharge Clinical Impression: Fall Qualifiers: Encounter type: initial encounter Qualified Code(s): W19.XXXA - Unspecified fall, initial encounter Condition: Stable Disposition: SNF-Other Referrals: PEGGY SÁNCHEZ MD [Primary Care Provider] - Follow up tomorrow Scribe Attestation: 11/11/17 03:27 I personally performed the services described in the documentation, reviewed and edited the documentation which was dictated to the scribe in my presence, and it accurately records my words and actions. (JO ANN BAEZ) Scribe Documentation - Scribe Written by Terrence:: Terrence Holbrook, 11/10/2017 1908 acting as scribe for :: Nestor <ZAFAR WALDROP - Last Filed: 11/10/17 20:49>
--- NOTE | 2017-11-10 19:28 | RADIOLOGY REPORT (SQ) ---
EXAM DESCRIPTION: CT HEAD WITHOUT COMPLETED DATE/TIME: 11/10/2017 7:09 pm REASON FOR STUDY: possible head injury COMPARISON: 06/25/2017 TECHNIQUE: Axial images acquired through the brain without intravenous contrast. Images reviewed wi th bone, brain and subdural windows. Images stored on PACS. All CT scanners at this facility use dose modulation, iterative reconstruction, and/or weight based d osing when appropriate to reduce radiation dose to as low as reasonably achievable (ALARA). [facility]: Dose Right [facility]: CareDose [facility]: Dose Right [facility]: Teradose 4D [facility]: [employer] RADIATION DOSE: CT Rad equipment meets quality standard of care and radiation dose reduction techniq ues were employed. CTDIvol: 49.0 mGy. DLP: 979 mGy-cm.mGy. LIMITATIONS: None. FINDINGS: VENTRICLES: Prominent. CEREBRUM: No masses. No hemorrhage. No midline shift. Similar Areas of low density in the white ma tter due to chronic ischemic change. No evidence for acute infarction. CEREBELLUM: No masses. No hemorrhage. No alteration of density. No evidence for acute infarction. EXTRAAXIAL SPACES: Age-related involutional change. No fluid collections. No masses. ORBITS AND GLOBE: No intra- or extraconal masses. Normal contour of globe without masses. CALVARIUM: No fracture. PARANASAL SINUSES: Similar ethmoid mucosal thickening. SOFT TISSUES: No mass or hematoma. OTHER: No other significant finding. IMPRESSION: No acute findings. EVIDENCE OF ACUTE STROKE: NO. TECHNICAL DOCUMENTATION: JOB ID: [id number] Quality ID # [id number]: Final reports with documentation of one or more dose reduction techniques (e.g., Au tomated exposure control, adjustment of the mA and/or kV according to patient size, use of iterative reconstruction technique) 2010 [employer]- All Rights Reserved Reading location - IP/workstation name: [email or web address]
--- NOTE | 2017-11-10 20:12 | RADIOLOGY REPORT (SQ) ---
EXAM DESCRIPTION: CHEST SINGLE VIEW COMPLETED DATE/TIME: 11/10/2017 8:02 pm REASON FOR STUDY: fall COMPARISON: 10/11/2017 EXAM PARAMETERS: NUMBER OF VIEWS: One view. TECHNIQUE: Single frontal radiographic view of the chest acquired. RADIATION DOSE: NA LIMITATIONS: None. FINDINGS: LUNGS AND PLEURA: No opacities, masses or pneumothorax. No pleural effusion. MEDIASTINUM AND HILAR STRUCTURES: No masses. Contour normal. HEART AND VASCULAR STRUCTURES: Heart normal in size. Normal vasculature. BONES: No acute findings. HARDWARE: None in the chest. OTHER: No other significant finding. IMPRESSION: NO ACUTE RADIOGRAPHIC FINDING IN THE CHEST. TECHNICAL DOCUMENTATION: JOB ID: [id number] 2010 [employer] All Rights Reserved Reading location - IP/workstation name: [employer]
[2017-11-10 20:14] LABS: ABSOLUTE BASOPHILS # (AUTO) 0.1 10^3/uL (0.0-0.2); ABSOLUTE EOSINOPHILS # (AUTO) 0.4 10^3/uL (0.0-0.6); ABSOLUTE LYMPHOCYTES (AUTO) 1.4 10^3/uL (0.5-4.7); ABSOLUTE MONOCYTES (AUTO) 0.3 10^3/uL (0.1-1.4); ABSOLUTE NEUT (AUTO) 3.5 10^3/uL (1.7-8.2); BASOPHILS % (AUTO) 1.1 % (0-2); EOSINOPHILS % (AUTO) 7.2 % (0-6); HEMOGLOBIN 13.2 g/dL (13.5-17.0); LYMPHOCYTES % (AUTO) 24.4 % (13-45); MEAN CORPUSCULAR HEMOGLOBIN 28.5 pg (27.0-33.4); MEAN CORPUSCULAR HGB CONC 33.8 g/dL (32.0-36.0); MEAN CORPUSCULAR VOLUME 85 fl (80-97); MONOCYTES % (AUTO) 5.8 % (3-13); PLATELET COUNT 381 10^3/uL (150-450); RED BLOOD COUNT 4.62 10^6/uL (4.35-5.55); RED CELL DISTRIBUTION WIDTH 15.4 % (11.5-14.0); SEGMENTED NEUTROPHILS % (AUTO) 61.5 % (42-78); TOTAL CELLS COUNTED % (AUTO) 100 %; WHITE BLOOD COUNT 5.6 10^3/uL (4.0-10.5)
[2017-11-10 20:29] LABS: ALANINE AMINOTRANSFERASE 31 U/L (21-72); ALBUMIN 4.8 g/dL (3.5-5.0); ALKALINE PHOSPHATASE 67 U/L (38-126); ANION GAP 19 (5-19); ASPARTATE AMINO TRANSFERASE 28 U/L (17-59); BILIRUBIN,DIRECT 0.4 mg/dL (0.0-0.4); BILIRUBIN,TOTAL 0.4 mg/dL (0.2-1.3); BLOOD UREA NITROGEN 15 mg/dL (7-20); CALCIUM 10.1 mg/dL (8.4-10.2); CARBON DIOXIDE 19 mmol/L (22-30); CHLORIDE 102 mmol/L (98-107); GLUCOSE 86 mg/dL (75-110); POTASSIUM 4.4 mmol/L (3.6-5.0); SODIUM 139.8 mmol/L (137-145); TOTAL PROTEIN 7.8 g/dL (6.3-8.2)
[2017-11-10] MEDS ORDERED: NORMAL SALINE 1000 ML 1,000 ML IV ONE (20:46)
[2017-11-10 23:52] VITALS: BP 137/81
== END 2017-11-11 00:28 ==
LOC: ER 18:38
DX: M54.2 Cervicalgia (principal); W06.XXXA Fall from bed, initial encounter; Y92.129 Unspecified place in nursing home as the place of occurrence of the external cause; I10 Essential (primary) hypertension; Z86.73 Personal history of transient ischemic attack (TIA), and cerebral infarction without residual deficits
CPT/HCPCS: 99285; 96360; 36415; 85025; 80053; 71045; 70450; J7030

== ENCOUNTER 2017-11-13 19:33 | Emergency (ER) | payer MEDICAID ==
--- NOTE | 2017-11-13 19:50 | ER Document Report ---
ED General - General Stated Complaint: HIGH BLOOD PRESSURE Cannot obtain history due to: Mentally challenged Notes: Patient is a 37-year-old male referred to the emergency department by the [facility] he [facility] due to concerns of blood pressure. His blood pressure was apparently 147 and 102. This prompted them to refer him to the emergency department. There are no additional concerns per the transfer report or EMS report. History is otherwise unable to be further clarified as patient is nonverbal at baseline TRAVEL OUTSIDE OF THE [place] IN LAST 30 DAYS: No - Related Data Allergies/Adverse Reactions: No Known Allergies Allergy (Verified 11/20/14 14:01) Past Medical History - General Information source: Transfer Record, Emergency Med Personnel, [facility] Records Cannot obtain history due to: Mentally challenged - Social History Smoking Status: Never Smoker Frequency of alcohol use: None Drug Abuse: None Lives with: Care Home Family History: Reviewed & Not Pertinent, Other - Unable to obtain secondary to TBI mentation - Past Medical History Cardiac Medical History: Reports: Hx Hypertension Neurological Medical History: Reports: Hx Cerebrovascular Accident, Hx Seizures Renal/ Medical History: Reports: Hx Renal Insufficiency. Denies: Hx Peritoneal Dialysis GI Medical History: Reports: Hx Ulcer Psychiatric Medical History: Reports: Hx Dementia, Hx Depression - Immunizations Hx Diphtheria, Pertussis, Tetanus Vaccination: Yes Hx Pneumococcal Vaccination: 09/15/09 Review of Systems - Review of Systems -: Yes ROS unobtainable due to patient's medical condition Physical Exam - Vital signs Vitals: Temp Pulse Resp BP Pulse Ox 98.8 F 80 16 148/99 H 100 11/13/17 19:56 11/13/17 19:56 11/13/17 19:56 11/13/17 19:56 11/13/17 19:56 Interpretation: Hypertensive Notes: PHYSICAL EXAMINATION: GENERAL: Contracted, muscle wasting throughout, chronically ill in appearance but in no acute distress HEAD: Atraumatic, normocephalic. EYES: sclera anicteric, conjunctiva are normal. ENT: Moderately dry mucous membranes. NECK: supple without lymphadenopathy LUNGS: Breath sounds clear to auscultation bilaterally and equal. No wheezes rales or rhonchi. HEART: Regular rate and rhythm without murmurs ABDOMEN: Soft, nontender No guarding, no rebound. No masses appreciated. EXTREMITIES: Contracted in all 4 extremities NEUROLOGICAL: Patient does not respond to verbal stimuli. Contracted throughout PSYCH: nonverbal SKIN: Warm, Dry, normal turgor, no rashes or lesions noted. Course - Re-evaluation Re-evalutation: 11/13/17 19:46 Patient presents with concerns based at the [facility] that his blood pressure was 147 systolic. He has a long-standing history of hypertension. The patient is nonverbal, unable to provide history. I have seen the patient on multiple prior occasions and this is a baseline. I did call the nursing facility to verify that there were no additional concerns that would warrant emergency department transfer. I spoke to fabien the nurse caring for this patient she states that her boss wanted the patient transferred as he recently had a stroke and they felt he needed monitoring due to this mildly elevated blood pressure. I have emphasized with him that this was not an appropriate transfer to the emergency department and is worrisome as the patient is being exposed to possible iatrogenic injury via transfer as well as exposure to communicate able diseases here in the emergency department. No workup is indicated or will be performed. He will be transferred back to the facility. - Vital Signs Vital signs: Temp Pulse Resp BP Pulse Ox 98.5 F 86 18 163/89 H 98 11/13/17 21:26 11/13/17 21:26 11/13/17 21:26 11/13/17 21:26 11/13/17 21:26 Discharge - Discharge Clinical Impression: Essential hypertension, History of CVA (cerebrovascular accident) Condition: Stable Disposition: HOME-SNF (ED ONLY) Additional Instructions: Transferring to the ED for a mildly elevated BP without additional symptoms is not appropriate. If you have concerns about this patient's BP and management of his chronically elevated blood pressure, you should contact the attending physician caring for this patient for additional blood pressure regimen changes. If you have concerns or any acute life-threatening illness please return the patient back to the emergency department.
[2017-11-13 21:27] VITALS: BP 163/89
== END 2017-11-13 21:20 ==
LOC: ER 19:33
DX: I10 Essential (primary) hypertension (principal); Z86.73 Personal history of transient ischemic attack (TIA), and cerebral infarction without residual deficits
CPT/HCPCS: 99283

== ENCOUNTER 2017-11-29 16:37 | Emergency (ER) | payer MEDICAID ==
[2017-11-29] MEDS ORDERED: CLONIDINE HCL 0.1 MG TABLET PO ONE (17:23)
--- NOTE | 2017-11-29 18:38 | ER Document Report ---
ED General - General Chief Complaint: High Blood Pressure Stated Complaint: BLOOD PRESSURE ISSUES Mode of Arrival: Medic Information source: Outside Facility Records Cannot obtain history due to: Mentally challenged TRAVEL OUTSIDE OF THE [place] IN LAST 30 DAYS: No - HPI Notes: 37-year-old male with a history of seizures, CVA, hypertension and blindness presents via EMS from an outside facility today for concerns of elevated blood pressure. Patient has an established history of essential hypertension, when his blood pressure was taken today pressure was 169/105. - Related Data Allergies/Adverse Reactions: No Known Allergies Allergy (Verified 11/29/17 17:10) Past Medical History - Social History Smoking Status: Never Smoker Frequency of alcohol use: None Drug Abuse: None Family History: Reviewed & Not Pertinent, Other - Unable to obtain secondary to TBI mentation Patient has suicidal ideation: No Patient has homicidal ideation: No - Past Medical History Cardiac Medical History: Reports: Hx Hypertension Neurological Medical History: Reports: Hx Cerebrovascular Accident, Hx Seizures Renal/ Medical History: Reports: Hx Renal Insufficiency. Denies: Hx Peritoneal Dialysis GI Medical History: Reports: Hx Ulcer Psychiatric Medical History: Reports: Hx Dementia, Hx Depression - Immunizations Hx Diphtheria, Pertussis, Tetanus Vaccination: Yes Hx Pneumococcal Vaccination: 09/15/09 Review of Systems - Review of Systems -: Yes ROS unobtainable due to patient's medical condition -: Yes All other systems reviewed and negative Physical Exam - Vital signs Vitals: Resp BP Pulse Ox 18 164/107 H 99 11/29/17 17:09 11/29/17 17:09 11/29/17 17:09 - General In distress: None - HEENT Head: Normocephalic Eyes: Normal Conjunctiva: Normal Cornea: Normal Extraocular movements intact: Yes Pharynx: Normal Neck: Normal. No: Anterior cervical chain, Posterior cervical chain - Respiratory Respiratory status: No respiratory distress Chest status: Nontender Breath sounds: Normal Chest palpation: Normal - Cardiovascular Rhythm: Regular Heart sounds: Normal auscultation Murmur: No Normal capillary refill: Yes - Abdominal Inspection: Normal Distension: No distension Bowel sounds: Normal Tenderness: Nontender Organomegaly: No organomegaly - Back Back: Normal, Nontender - Neurological Orientation: Disoriented to events Itn Coma Scale Eye Opening: Spontaneous Vale Coma Scale Verbal: None Tin Coma Scale Motor: Localizes to Pain Tin Coma Scale Total: 10 Cranial nerves: Facial palsy - Skin Skin Temperature: Warm Skin Moisture: Dry Skin Color: Normal Course - Vital Signs Vital signs: Temp Pulse Resp BP Pulse Ox 97.8 F 74 17 126/93 H 100 11/29/17 20:05 11/29/17 17:10 11/29/17 20:04 11/29/17 20:01 11/29/17 20:04 Discharge - Discharge Clinical Impression: Essential hypertension Condition: Good Disposition: HOME-ASSISTED LIVING Instructions: High Blood Pressure ([facility]), High Blood Pressure, Requiring Treatment ([facility]) Additional Instructions: HIGH BLOOD PRESSURE, NOT TREAT: When your blood pressure was taken today it was elevated. Today's reading was . We do not think you need to have your blood pressure treated today. Sometimes, stress or illness causes a temporary elevation of your blood pressure. We suggest that you get your blood pressure measured again during the next few days to see if this elevated blood pressure is more than a temporary abnormality. If your blood pressure is greater than 150/90 on each occasion, you must have treatment. Some simple things you can do to help are: If you have blood pressure medicine but aren't using it regularly, start taking it again. Get some aerobic exercise for at least 20 minutes on a daily basis. (See your doctor before beginning a new exercise program.) Eat a low-fat diet. Lose excess weight. Avoid salty foods and avoid adding salt to any of the foods you eat. Avoid diet pills, decongestants, "energizing" herbs, and other medicines that elevate blood pressure. If left untreated, hypertension greatly enhances your risk for developing heart disease and strokes. Please don't ignore this problem. HIGH BLOOD PRESSURE REQUIRING TREATMENT: Your blood pressure is high. This is called "hypertension." Today's reading was 160/109 (normal is less than 140/90). Your history and exam suggest that this is not a temporary problem. You need treatment of your blood pressure. If left untreated, high blood pressure greatly increases your risk of heart attack and stroke. Please don't ignore this problem. If you have blood pressure medicine but aren't using it regularly, start taking it again. Some simple things you can do to help are: Get some aerobic exercise for at least 20 minutes on a daily basis. (See your doctor before beginning any new exercise program.) Eat a low-fat diet. Lose excess weight. Avoid salty foods and avoid adding salt to any of the foods you eat. Avoid diet pills, decongestants, "energizing" herbs, and other medicines that elevate blood pressure. There are many different medicines that treat blood pressure. If your medication causes unpleasant side effects, call your doctor. There are others you can try. Treating hypertension is a life-long investment in your health. CLONIDINE (CATAPRES): Clonidine is blood-pressure medicine. It works in your brain, making the nervous system relax the blood vessels. This medicine can also be used for symptoms of narcotic withdrawal. Clonidine frequently causes dry mouth, drowsiness, and dizziness. These symptoms go away as you continue to use it. Rest for the first couple of days. Don't drive or use machinery until you're back to normal. Never stop clonidine suddenly! There can be a "rebound" severe increase in blood pressure, headache, and agitation. Be sure you always have enough of the medicine. Call the doctor if you have any new symptoms such as skin rash, weakness, severe lightheadedness, chest pain, headache, or depression. HYDROCHLOROTHIAZIDE: Hydrochlorothiazide is a diuretic medication. Diuretics are often called "water pills." The medicine flushes excess salt and water from the body. Diuretics are used for fluid retention (such as heart failure, cirrhosis, or lung disease) and for blood pressure control. Often hydrochlorothiazide is combined with other medicines in the same pill. Most patients prefer to take the medicine in the morning. Hydrochlorothiazide makes extra urine, which can be a problem if you take the pill at night. Diuretics make you lose potassium. Sometimes a good diet with plenty of fruit is enough to replace it. Sometimes a potassium supplement is necessary. Or, hydrochlorothiazide may be combined with medicines that prevent potassium loss. We usually recommend a blood potassium test in a few weeks. Contact your doctor if you develop extreme fatigue, muscle weakness, lethargy, confusion, or palpitations. ANGIOTENSIN CONVERTING ENZYME INHIBITOR MEDICATION: "SHIRLEY inhibitor" drugs are used to lower high blood pressure (or to reduce the "work" of the heart in patients with heart failure). These drugs block an enzyme that makes your blood vessels constrict and makes you retain salt. The result is lower blood pressure. SHIRLEY inhibitors cause few side effects. The most common side effect is a dry nagging cough. Occasionally, lightheadedness may occur while you get used to the medicine. Some patients may retain extra potassium (this is a problem if you are taking potassium supplements, potassium-containing salt substitutes, or a potassium-retaining drug such as triamterene, spironolactone, or amiloride) . If you are taking lithium, the lithium level must be rechecked after starting an SHIRLEY inhibitor. SHIRLEY inhibitors should NOT be used during . Contact the doctor or return if you develop severe lightheadedness, wheeze , weakness, palpitations or other new symptoms. CALCIUM CHANNEL BLOCKERS: A medication of the calcium channel tracy type has been prescribed for you. Examples of this type of medicine are Calan, Isoptin, Procardia, and Cardizem. These medicines have a variety of uses, including prevention of angina attacks, treatment of blood pressure, regulation of certain heart rhythm problems, and prevention of migraine headaches. Calcium channel blockers work by interfering with the flow of calcium in cell membranes. This results in dilation of blood vessels, and slowing of electrical conduction in the heart. A slight dizziness (due to a fall in blood pressure) may occur with the first dose, and sometimes even with later doses. This may make you prone to dizziness if you stand up suddenly. Call the doctor if lightheadedness is severe, or if you develop palpitations, shortness of breath, or any other new or alarming symptoms. BETA BLOCKERS: You have been given a prescription for a beta-tracy medication. This class of drugs is used for many purposes, including angina, high blood pressure , heart rhythm disturbances, tremors, and migraines. The medication works by interfering with the effects of the sympathetic nervous system (the sympathetic system has adrenaline-like effects of constricting blood vessels, increasing heart rate, and increasing blood pressure). This medication is usually well-tolerated. However, some patients have side effects such as fatigue, depression, or dizziness. Persons with asthma may develop wheezing from this medicine. Contact your doctor if you are bothered by any side effects. Do not take any cold or allergy medication without first consulting your doctor. Do not stop the medicine without consulting your doctor, as a "rebound " worsening of your condition can result. FOLLOW-UP CARE: If you have been referred to a physician for follow-up care, call the physician s office for an appointment as you were instructed or within the next two days. If you experience worsening or a significant change in your symptoms, notify the physician immediately or return to the Emergency Department at any time for re-evaluation. Return immediately for any new or worsening symptoms. Follow up with primary care provider, call tomorrow to make followup appointment. Referrals: YARELIS LAU MD [ACTIVE STAFF] - Follow up in 3-5 days NGHIA ONEAL MD [ACTIVE STAFF] - Follow up in 3-5 days
[2017-11-29 20:11] VITALS: BP 126/93
== END 2017-11-29 20:30 | disposition home health service (06) ==
LOC: ER 16:37
DX: I10 Essential (primary) hypertension (principal); Z86.73 Personal history of transient ischemic attack (TIA), and cerebral infarction without residual deficits
CPT/HCPCS: 99283; J3490

== ENCOUNTER 2017-12-01 14:59 | Emergency (ER) | payer MEDICAID ==
[2017-12-01] MEDS ORDERED: METOPROLOL TARTRATE PF/INJ 5 MG/5 ML SDV IV ONE (15:11)
--- NOTE | 2017-12-01 15:16 | ER Document Report ---
ED Cardiac - General Stated Complaint: CHEST PAIN Time Seen by Provider: 12/01/17 15:01 Mode of Arrival: Medic Information source: Emergency Med PersonnelDr. Lucio, [facility] Records TRAVEL OUTSIDE OF THE [place] IN LAST 30 DAYS: No - HPI Patient complains to provider of: Other - SEE NOTES Was the onset of pain: Unknown Cardiac risk factors: Hypertension Positive cardiac history: No Recently seen / treated by doctor: Yes - SENT FROM [facility] Notes: This patient is a resident of a local assisted and apparently has a well- known history of hypertension. He apparently was at the electrician bus's office today for a blood pressure check, BP was found to be elevated and 12-lead EKG was done, which was suggestive of an acute clarissa-septal STEMI. He was immediately transferred to the emergency department by EMS. 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 - Related Data Allergies/Adverse Reactions: No Known Allergies Allergy (Verified 11/29/17 17:10) Past Medical History - General Information source: Emergency Med PersonnelDr. Lucio, [facility] Records - Social History Smoking Status: Unknown if Ever Smoked Frequency of alcohol use: None Drug Abuse: None Lives with: Alf Family History: Reviewed & Not Pertinent, Other - Unable to obtain secondary to TBI mentation Patient has suicidal ideation: No Patient has homicidal ideation: No - Past Medical History Cardiac Medical History: Reports: Hx Hypertension Neurological Medical History: Reports: Hx Cerebrovascular Accident, Hx Seizures Renal/ Medical History: Reports: Hx Renal Insufficiency. Denies: Hx Peritoneal Dialysis GI Medical History: Reports: Hx Ulcer Psychiatric Medical History: Reports: Hx Dementia, Hx Depression - Immunizations Hx Diphtheria, Pertussis, Tetanus Vaccination: Yes Hx Pneumococcal Vaccination: 09/15/09 Review of Systems - Review of Systems -: Yes ROS unobtainable due to patient's medical condition Physical Exam - Vital signs Vitals: Resp BP Pulse Ox 11 L 165/99 H 99 12/01/17 15:12 12/01/17 15:12 12/01/17 15:12 Course - Re-evaluation Re-evalutation: 12/01/17 16:21 Cardiac connections at [facility] was consulted at 1505 regarding possible transfer. Copies of EKGs and demographics were sent. At 1536, call was received from cardiac connections stating that there herd tester, Dr. Lloyd, had reviewed the data and opined that this patient was not having a STEMI. He suggested management of the hypertensive crisis and call again if the need for emergency intervention arose. Spoke with Dr. May at 1532. Discussed the conversation that took place with cardiac connections. He agreed that treatment at [facility] sounded reasonable, provided that the cardiac enzymes were not elevated. Spoke with Dr. Levi at 1602. He opined that the patient needed cardiac catheterization and should be transferred to an appropriate facility. Patient was reevaluated, he seems to have responded appropriately to the interventions that were made. He appears comfortable. Blood pressure is well controlled. Repeat EKG shows no evolution. Repeat cardiac enzymes were ordered for a 2 hour interval, after which decision regarding disposition will be made. 12/02/17 00:48 Patient appears to be asymptomatic at this time. Blood pressure remains well controlled. He is in no distress. Repeat EKGs have demonstrated no evolution. He is being transferred to the care of Dr. Blanchard at [facility], where interventional cardiology is available. Case discussed with Dr. May, who agrees that catheterization is indicated. Patient is stable for transport. - Vital Signs Vital signs: Temp Pulse Resp BP Pulse Ox 97.9 F 69 12 131/88 H 100 12/01/17 23:52 12/01/17 17:02 12/01/17 23:30 12/01/17 23:30 12/01/17 23:29 - Laboratory Result Diagrams: 12/01/17 15:12 12/01/17 15:12 Laboratory results interpreted by me: 12/01/17 12/01/17 12/01/17 15:12 15:12 15:12 Hgb 12.7 L RDW 15.3 H Plt Count 458 H Eosinophils % 8.3 H Potassium 5.5 H BUN 25 H Calcium 10.3 H Creatine Kinase 196 H CK-MB (CK-2) 5.92 H 12/01/17 12/01/17 17:44 20:19 Hgb RDW Plt Count Eosinophils % Potassium BUN Calcium Creatine Kinase CK-MB (CK-2) 6.59 H 7.03 H - Diagnostic Test Radiology reviewed: Image reviewed, Reports reviewed - EKG Interpretation by Nh EKG shows normal: Sinus rhythm. abnormal: QRS Complexes - ANT. Q WAVES, ST-T Waves - ST ELEVATIONS: 3 mm IN V1, 2 mm IN V2, AND 1 mm IN V3. Rate: Normal Rhythm: NSR Voltage: Consistant with LVH Critical Care Note - Critical Care Note Total time excluding time spent on procedures (mins): 30 Comments: COMPLEX CLINICAL PRESENTATION, IMPORTANT DATA NOT AVAILABLE, MULTIPLE CONSULTATIONS NECESSARY, AGGRESSIVE INTERVENTIONS NECESSARY TO STABILIZE PATIENT. Discharge - Discharge Clinical Impression: Hypertensive emergency, Elevated troponin, Essential hypertension Condition: Good Disposition: [facility]
[2017-12-01] MEDS ORDERED: ASPIRIN 300 MG SUPP, RECTAL PR ONE (15:19)
[2017-12-01] MEDS ORDERED: HYDRALAZINE HCL INJ/PF 20 MG/1 ML SDV IV ONE (15:24)
[2017-12-01] MEDS ORDERED: HYDRALAZINE HCL INJ/PF 20 MG/1 ML SDV ONE (15:26)
[2017-12-01 15:27] LABS: ABSOLUTE EOSINOPHILS # (AUTO) 0.3 10^3/uL (0.0-0.6); ABSOLUTE LYMPHOCYTES (AUTO) 1.6 10^3/uL (0.5-4.7); ABSOLUTE MONOCYTES (AUTO) 0.4 10^3/uL (0.1-1.4); ABSOLUTE NEUT (AUTO) 1.8 10^3/uL (1.7-8.2); EOSINOPHILS % (AUTO) 8.3 % (0-6); HEMATOCRIT 38.6 % (37.9-51.0); HEMOGLOBIN 12.7 g/dL (13.5-17.0); LYMPHOCYTES % (AUTO) 38.8 % (13-45); MEAN CORPUSCULAR HGB CONC 32.9 g/dL (32.0-36.0); MEAN CORPUSCULAR VOLUME 85 fl (80-97); MONOCYTES % (AUTO) 8.5 % (3-13); PLATELET COUNT 458 10^3/uL (150-450); RED BLOOD COUNT 4.53 10^6/uL (4.35-5.55); RED CELL DISTRIBUTION WIDTH 15.3 % (11.5-14.0); SEGMENTED NEUTROPHILS % (AUTO) 43.4 % (42-78); TOTAL CELLS COUNTED % (AUTO) 100 %; WHITE BLOOD COUNT 4.1 10^3/uL (4.0-10.5)
[2017-12-01] MEDS ORDERED: NITROGLYCERIN 0.4 MG/TAB 25 TAB/BOTTLE SL ONE (15:32)
--- NOTE | 2017-12-01 15:38 | RADIOLOGY REPORT (SQ) ---
EXAM DESCRIPTION: CHEST SINGLE VIEW COMPLETED DATE/TIME: 12/01/2017 3:30 pm REASON FOR STUDY: STEMI COMPARISON: None. EXAM PARAMETERS: NUMBER OF VIEWS: One view. TECHNIQUE: Single frontal radiographic view of the chest acquired. RADIATION DOSE: NA LIMITATIONS: None. FINDINGS: LUNGS AND PLEURA: No opacities, masses or pneumothorax. No pleural effusion. MEDIASTINUM AND HILAR STRUCTURES: No masses. Contour normal. HEART AND VASCULAR STRUCTURES: Heart normal in size. Normal vasculature. BONES: No acute findings. HARDWARE: None in the chest. OTHER: No other significant finding. IMPRESSION: NO ACUTE RADIOGRAPHIC FINDING IN THE CHEST. TECHNICAL DOCUMENTATION: JOB ID: [id number] [employer]- All Rights Reserved Reading location - IP/workstation name: [email or web address]
[2017-12-01] MEDS ORDERED: NITROGLYCERIN 2% OINTMENT 1 GM PACKET ONE (15:39)
[2017-12-01 15:43] LABS: ALANINE AMINOTRANSFERASE 27 U/L (21-72); ALBUMIN 4.7 g/dL (3.5-5.0); ALKALINE PHOSPHATASE 45 U/L (38-126); ANION GAP 14 (5-19); ASPARTATE AMINO TRANSFERASE 25 U/L (17-59); BILIRUBIN,DIRECT 0.4 mg/dL (0.0-0.4); BILIRUBIN,TOTAL 0.4 mg/dL (0.2-1.3); BLOOD UREA NITROGEN 25 mg/dL (7-20); CALCIUM 10.3 mg/dL (8.4-10.2); CARBON DIOXIDE 23 mmol/L (22-30); CHLORIDE 104 mmol/L (98-107); CREATINE KINASE 196 U/L (55-170); GLUCOSE 85 mg/dL (75-110); POTASSIUM 5.5 mmol/L (3.6-5.0); SODIUM 141.2 mmol/L (137-145); TOTAL PROTEIN 7.7 g/dL (6.3-8.2)
[2017-12-01] MEDS ORDERED: NITROGLYCERIN 2% OINTMENT 1 GM PACKET TP SCH (15:45)
[2017-12-01 15:51] LABS: CREATINE KINASE MB 5.92 ng/mL (<4.55)
[2017-12-01] MEDS ORDERED: ENOXAPARIN SODIUM INJ 60 MG/0.6 ML DISP.SYRIN SUBCUT SCH (16:00)
[2017-12-01 16:01] LABS: TROPONIN I 0.063 ng/mL
[2017-12-01] MEDS ORDERED: NITROGLYCERIN 2% OINTMENT 1 GM PACKET TP ONE (16:30)
[2017-12-01] MEDS ORDERED: ENOXAPARIN SODIUM INJ 60 MG/0.6 ML DISP.SYRIN SUBCUT ONE (17:00)
[2017-12-01 18:32] LABS: CREATINE KINASE MB 6.59 ng/mL (<4.55); TROPONIN I 0.072 ng/mL
[2017-12-01 21:10] LABS: CREATINE KINASE MB 7.03 ng/mL (<4.55); TROPONIN I 0.09 ng/mL
[2017-12-01] MEDS ORDERED: NITROGLYCERIN 0.4 MG/TAB 25 TAB/BOTTLE ONE (21:29)
[2017-12-01] MEDS ORDERED: ENOXAPARIN SODIUM INJ 30 MG/0.3 ML DISP.SYRIN ONE (21:29)
[2017-12-01] MEDS ORDERED: ASPIRIN 81 MG TABLET, CHEWABLE ONE (21:29)
--- NOTE | 2017-12-01 21:59 | EKG REPORT ---
SEVERITY:- ABNORMAL ECG - SINUS RHYTHM ATRIAL PREMATURE COMPLEX CONSIDER ANTEROSEPTAL INFARCT VS LVH, REC REPEAT EKG ABNORMAL T, CONSIDER ISCHEMIA, ANT-LAT LEADS : Confirmed by: Deejay May 01-Dec-2017 21:57:42
--- NOTE | 2017-12-01 21:59 | EKG REPORT ---
SEVERITY:- ABNORMAL ECG - SINUS RHYTHM VENTRICULAR PREMATURE COMPLEX CONSIDER ANTEROSEPTAL INFARCT, POSSIBLY ACUTE VS LVH LATERAL LEADS ARE ALSO INVOLVED PROLONGED QT INTERVAL : Confirmed by: Deejay May 01-Dec-2017 21:58:50
--- NOTE | 2017-12-01 22:00 | EKG REPORT ---
SEVERITY:- ABNORMAL ECG - SINUS RHYTHM PROBABLE LVH WITH SECONDARY REPOL ABNRM ANTERIOR Q WAVES, POSSIBLY DUE TO LVH : Confirmed by: Deejay May 01-Dec-2017 22:00:16
--- NOTE | 2017-12-01 22:00 | EKG REPORT ---
SEVERITY:- ABNORMAL ECG - ATRIAL FIBRILLATION CONSIDER ANTEROSEPTAL INFARCT VS LVH ABNORMAL T, CONSIDER ISCHEMIA, LATERAL LEADS : Confirmed by: Deejay May 01-Dec-2017 21:59:23
[2017-12-02] MEDS ORDERED: NITROGLYCERIN 2% OINTMENT 1 GM PACKET TP SCH
[2017-12-02 00:59] VITALS: BP 138/95
[2017-12-02] MEDS ORDERED: ENOXAPARIN SODIUM INJ 60 MG/0.6 ML DISP.SYRIN SUBCUT SCH (06:00)
[2017-12-02] MEDS ORDERED: ASPIRIN 300 MG SUPP, RECTAL PR SCH (10:00)
== END 2017-12-02 01:10 | disposition short-term general hospital (02) ==
LOC: ER 14:59
DX: I10 Essential (primary) hypertension (principal); I16.0 Hypertensive urgency; R79.89 Other specified abnormal findings of blood chemistry; R07.9 Chest pain, unspecified; Z86.73 Personal history of transient ischemic attack (TIA), and cerebral infarction without residual deficits; Z87.820 Personal history of traumatic brain injury
CPT/HCPCS: 93005; 99291; 96374; 36415; 82553; 82550; 85025; 80053; 84484; 71045; 93010; J3490 ×4; J1650

== ENCOUNTER 2018-04-08 18:17 | Emergency (ER) | payer MEDICAID ==
--- NOTE | 2018-04-08 19:33 | ER Document Report ---
ED General - General Information source: Patient TRAVEL OUTSIDE OF THE [place] IN LAST 30 DAYS: No <KATHYA CHAO - Last Filed: 04/08/18 23:05> <KALEY LOPEZ - Last Filed: 04/08/18 23:45> - General Chief Complaint: Probable Seizure Stated Complaint: POSSIBLE SEIZURE Time Seen by Provider: 04/08/18 19:04 Notes: 37-year-old nonverbal patient secondary to TBI that presents today with complaints of possible seizure at nursing facility. According to outside facility records, patient has a history of seizures and is currently on Vimpat for seizures. History is limited secondary to the patient's baseline mentation. (KATHYA CHAO) - Related Data Allergies/Adverse Reactions: No Known Allergies Allergy (Verified 11/29/17 17:10) Past Medical History - General Information source: [facility] Records, Outside Facility Records Cannot obtain history due to: Mentally challenged - Social History Smoking Status: Never Smoker Family History: Other - Unable to obtain secondary to TBI mentation - Past Medical History Cardiac Medical History: Reports: Hx Hypertension Pulmonary Medical History: Neurological Medical History: Reports: Hx Cerebrovascular Accident, Hx Seizures Renal/ Medical History: Reports: Hx Renal Insufficiency GI Medical History: Reports: Hx Ulcer Musculoskeletal Medical History: Psychiatric Medical History: Reports: Hx Dementia, Hx Depression Surgical Hx: Negative Past Surgical History: - Immunizations Hx Diphtheria, Pertussis, Tetanus Vaccination: Yes Hx Pneumococcal Vaccination: 09/15/09 <KATHYA CHAO - Last Filed: 04/08/18 23:05> Review of Systems - Review of Systems -: Yes ROS unobtainable due to patient's medical condition <KATHYA CHAO - Last Filed: 04/08/18 23:05> Physical Exam <KATHYA CHAO - Last Filed: 04/08/18 23:05> <KALEY LOPEZ - Last Filed: 04/08/18 23:45> - Vital signs Vitals: Resp Pulse Ox 18 100 04/08/18 18:30 04/08/18 18:30 - Notes Notes: Physical Exam: General: Appears at baseline according to records. Non verbal. HEENT: Normocephalic. Atraumatic. PERRL. Extraocular movements intact. Oropharynx clear. Neck: Supple. Non-tender. Respiratory: No respiratory distress. Clear and equal breath sounds bilaterally. Cardiovascular: Regular rate and rhythm. Abdominal: Normal Inspection. Non-tender. No distension. Normal Bowel Sounds. Back: Non-tender. No deformity or step off. Upper extremities: Contractures bilaterally, constantly twitching RUE Lower extremities: Moves bilateral feet back and forth Neurological: No clonus or hyperreflexia Psychological: unable to assess. Skin: Warm. Dry. Normal color. (KATHYA CHAO) Course - Laboratory Result Diagrams: 04/08/18 22:19 04/08/18 22:19 <KATHYA CHAO - Last Filed: 04/08/18 23:05> - Laboratory Result Diagrams: 04/08/18 22:19 04/08/18 22:19 <KALEY LOPEZ - Last Filed: 04/08/18 23:45> - Re-evaluation Re-evalutation: 04/08/18 23:45 All the patient's lab work is normal. Vimpat levels cannot be checked here. His status has not really changed since he got here. (KALEY LOPEZ) - Vital Signs Vital signs: Temp Pulse Resp BP Pulse Ox 98.5 F 13 136/90 H 100 04/08/18 19:35 04/08/18 20:00 04/08/18 20:00 04/08/18 20:00 - Laboratory Laboratory results interpreted by me: 04/08/18 04/08/18 04/08/18 19:55 22:19 22:19 Hgb 12.9 L RDW 15.1 H Carbon Dioxide 20 L Calcium 10.4 H Urine Blood SMALL H Discharge <KATHYA CHAO - Last Filed: 04/08/18 23:05> <KALEY LOPEZ - Last Filed: 04/08/18 23:45> - Discharge Clinical Impression: Seizures Condition: Stable Disposition: HOME, SELF-CARE Additional Instructions: Seizure, Known Epileptic You have had a seizure. Seizures may "break through" in an epileptic due to stress of infection or injury, a change in blood chemistry, or drug and alcohol use. Another common cause is failure to take medication as prescribed. Your doctor has evaluated your situation for the likely cause of this seizure. It is important that you follow his advice concerning any medication changes and follow-up care. Further testing of anti-seizure medication levels in your blood may be necessary. 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 This seizure must be reported to the [place] truck driver 's license bureau. Call the doctor or return if seizures recur, or if new or unusual symptoms arise -- such as severe headache, confusion, excessive sleepiness, local weakness or numbness, neck stiffness, or fever. Be sure the patient does not miss any doses of his medication. Contact his primary care provider or neurologist and report the seizure activity to them to see if they want to make any medication changes. RETURN TO THE EMERGENCY ROOM IF ANY NEW OR WORSENING SYMPTOMS. Terrence Attestation: 04/08/18 19:40 I personally performed the services described in the documentation, reviewed and edited the documentation which was dictated to the scribe in my presence, and it accurately records my words and actions. (KALEY LOPEZ) Scribe Documentation - Scribe Written by Terrence:: Terrence Rock, 04/08/2018 [id number] acting as scribe for :: Job <KATHYA CHAO - Last Filed: 04/08/18 23:05>
[2018-04-08 20:29] LABS: APPEARANCE,URINE CLEAR; BILIRUBIN,URINE NEGATIVE (NEGATIVE); COLOR,URINE YELLOW; GLUCOSE, URINE NEGATIVE (NEGATIVE); KETONES,URINE NEGATIVE (NEGATIVE); LEUKOCYTE ESTERASE,URINE NEGATIVE (NEGATIVE); NITRITE,URINE NEGATIVE (NEGATIVE); PROTEIN,URINE NEGATIVE (NEGATIVE); URINE SPECIFIC GRAVITY 1.013; UROBILINOGEN,URINE NEGATIVE mg/dL (<2.0)
[2018-04-08 22:40] LABS: ABSOLUTE BASOPHILS # (AUTO) 0.1 10^3/uL (0.0-0.2); ABSOLUTE EOSINOPHILS # (AUTO) 0.4 10^3/uL (0.0-0.6); ABSOLUTE LYMPHOCYTES (AUTO) 1.8 10^3/uL (0.5-4.7); ABSOLUTE MONOCYTES (AUTO) 0.5 10^3/uL (0.1-1.4); ABSOLUTE NEUT (AUTO) 3.6 10^3/uL (1.7-8.2); BASOPHILS % (AUTO) 1.1 % (0-2); EOSINOPHILS % (AUTO) 5.6 % (0-6); HEMATOCRIT 38.6 % (37.9-51.0); HEMOGLOBIN 12.9 g/dL (13.5-17.0); LYMPHOCYTES % (AUTO) 28.9 % (13-45); MEAN CORPUSCULAR HEMOGLOBIN 28.4 pg (27.0-33.4); MEAN CORPUSCULAR HGB CONC 33.5 g/dL (32.0-36.0); MEAN CORPUSCULAR VOLUME 85 fl (80-97); MONOCYTES % (AUTO) 8.6 % (3-13); PLATELET COUNT 410 10^3/uL (150-450); RED BLOOD COUNT 4.55 10^6/uL (4.35-5.55); RED CELL DISTRIBUTION WIDTH 15.1 % (11.5-14.0); SEGMENTED NEUTROPHILS % (AUTO) 55.8 % (42-78); TOTAL CELLS COUNTED % (AUTO) 100 %; WHITE BLOOD COUNT 6.4 10^3/uL (4.0-10.5)
[2018-04-08 22:49] LABS: ALANINE AMINOTRANSFERASE 34 U/L (21-72); ALBUMIN 4.7 g/dL (3.5-5.0); ALKALINE PHOSPHATASE 69 U/L (38-126); ANION GAP 19 (5-19); ASPARTATE AMINO TRANSFERASE 41 U/L (17-59); BILIRUBIN,DIRECT 0.3 mg/dL (0.0-0.4); BILIRUBIN,TOTAL 0.5 mg/dL (0.2-1.3); BLOOD UREA NITROGEN 17 mg/dL (7-20); CALCIUM 10.4 mg/dL (8.4-10.2); CARBON DIOXIDE 20 mmol/L (22-30); CHLORIDE 101 mmol/L (98-107); GLUCOSE 91 mg/dL (75-110); POTASSIUM 4.4 mmol/L (3.6-5.0); SODIUM 140.3 mmol/L (137-145); TOTAL PROTEIN 8.1 g/dL (6.3-8.2)
[2018-04-09 01:21] VITALS: BP 127/90
== END 2018-04-09 01:30 | disposition home or self-care (01) ==
LOC: ER 18:17
DX: R56.9 Unspecified convulsions (principal); Z79.899 Other long term (current) drug therapy; I10 Essential (primary) hypertension; Z87.820 Personal history of traumatic brain injury
CPT/HCPCS: 36415; 51701; 80053; 81001; 85025; 87086; 99285

== ENCOUNTER 2018-06-17 12:07 | Inpatient (IN) | payer MEDICAID ==
[2018-06-17] MEDS ORDERED: NORMAL SALINE 1000 ML 1,000 ML IV ONE ×3 (12:35→17:11)
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
--- NOTE | 2018-06-17 13:27 | RADIOLOGY REPORT (SQ) ---
EXAM DESCRIPTION: CHEST SINGLE VIEW COMPLETED DATE/TIME: 06/17/2018 1:09 pm REASON FOR STUDY: Less responsive than usual. COMPARISON: Chest films 06/25/2017, 10/11/2017, 11/10/2017, 12/01/2017 EXAM PARAMETERS: NUMBER OF VIEWS: One view. TECHNIQUE: Single frontal radiographic view of the chest acquired. RADIATION DOSE: NA LIMITATIONS: None. FINDINGS: LUNGS AND PLEURA: No opacities, masses or pneumothorax. No pleural effusion. MEDIASTINUM AND HILAR STRUCTURES: No masses. Contour normal. HEART AND VASCULAR STRUCTURES: Heart normal in size. Normal vasculature. BONES: No acute findings. HARDWARE: None in the chest. OTHER: No other significant finding. IMPRESSION: NO ACUTE RADIOGRAPHIC FINDING IN THE CHEST. TECHNICAL DOCUMENTATION: JOB ID: [id number] [employer]- All Rights Reserved Reading location - IP/workstation name: [email or web address]
[2018-06-17 15:27] LABS: HEMATOCRIT 36.7 % (37.9-51.0); HEMOGLOBIN 12.2 g/dL (13.5-17.0); MEAN CORPUSCULAR HEMOGLOBIN 28.4 pg (27.0-33.4); MEAN CORPUSCULAR HGB CONC 33.2 g/dL (32.0-36.0); MEAN CORPUSCULAR VOLUME 86 fl (80-97); PLATELET COUNT 346 10^3/uL (150-450); RED BLOOD COUNT 4.29 10^6/uL (4.35-5.55); RED CELL DISTRIBUTION WIDTH 15.3 % (11.5-14.0)
[2018-06-17 15:39] LABS: ALANINE AMINOTRANSFERASE 28 U/L (21-72); ALBUMIN 3.3 g/dL (3.5-5.0); ALKALINE PHOSPHATASE 50 U/L (38-126); ANION GAP 18 (5-19); ASPARTATE AMINO TRANSFERASE 24 U/L (17-59); BILIRUBIN,DIRECT 0.5 mg/dL (0.0-0.4); BILIRUBIN,TOTAL 0.8 mg/dL (0.2-1.3); BLOOD UREA NITROGEN 57 mg/dL (7-20); CALCIUM 8.9 mg/dL (8.4-10.2); CARBON DIOXIDE 17 mmol/L (22-30); CHLORIDE 106 mmol/L (98-107); CREATINE KINASE 213 U/L (55-170); GLUCOSE 108 mg/dL (75-110); POTASSIUM 4.8 mmol/L (3.6-5.0); SODIUM 141.1 mmol/L (137-145)
[2018-06-17 15:44] LABS: APPEARANCE,URINE CLOUDY; BILIRUBIN,URINE NEGATIVE (NEGATIVE); COLOR,URINE YELLOW; GLUCOSE, URINE NEGATIVE (NEGATIVE); KETONES,URINE NEGATIVE (NEGATIVE); LEUKOCYTE ESTERASE,URINE NEGATIVE (NEGATIVE); NITRITE,URINE NEGATIVE (NEGATIVE); PROTEIN,URINE 100 mg/dL (NEGATIVE); URINE SPECIFIC GRAVITY 1.019; UROBILINOGEN,URINE NEGATIVE mg/dL (<2.0)
[2018-06-17 15:49] LABS: CREATINE KINASE MB 8.62 ng/mL (<4.55)
[2018-06-17 15:52] LABS: ABSOLUTE LYMPHOCYTES# (MANUAL) 2.6 10^3/uL (0.5-4.7); ABSOLUTE MONOCYTES # (MANUAL) 1.5 10^3/uL (0.1-1.4); ABSOLUTE NEUTROPHILS# (MANUAL) 5.9 10^3/uL (1.7-8.2); BAND NEUTROPHILS % (MANUAL) 14 % (3-5); BASOPHILS % (MANUAL) 0 % (0-2); EOSINOPHILS % (MANUAL) 0 % (0-6); LYMPHOCYTES % (MANUAL) 26 % (13-45); METAMYELOCYTES % (MANUAL) 1 % (0); MONOCYTES % (MANUAL) 15 % (3-13); SEGMENTED NEUTROPHILS % (MAN) 44 % (42-78); TOTAL CELLS COUNTED 100
[2018-06-17 15:53] LABS: TROPONIN I 0.918 ng/mL
[2018-06-17 15:54] LABS: ANISOCYTOSIS SLIGHT; PLATELET CLUMPS PRESENT; PLATELET COMMENT ADEQUATE; POIKILOCYTOSIS SLIGHT; TOXIC VACUOLATION PRESENT
[2018-06-17] MEDS ORDERED: CEFTRIAXONE INJ 1000 MG VIAL IV ONE (17:04)
[2018-06-17] MEDS ORDERED: NOREPINEPHRINE BITARTRATE INJ/PF 4 MG/4 ML SDV IV ONE (18:34)
[2018-06-17] MEDS ORDERED: ONDANSETRON HCL INJ/PF 4 MG/2 ML SDV IV PRN (18:51)
[2018-06-17] MEDS ORDERED: IPRATROPIUM/ALBUTEROL 0.5-2.5 MG/3 ML AMPUL NEB PRN (18:51)
[2018-06-17] MEDS ORDERED: DEXTROSE 5%-WATER 250 ML with NOREPINEPHRINE BITARTRATE 4 MG IV PRN ×2 (18:51)
[2018-06-17] MEDS ORDERED: NORMAL SALINE 1000 ML 1,000 ML IV PRN (18:51)
--- NOTE | 2018-06-17 18:51 | PDOC H&P ---
History of Present Illness Admission Date/PCP: YARELIS POST MD History of Present Illness: NALDO LESTER JR is a 37 year old male Patient presents to the emergency room apparently after having been sent from [facility]. Patient has had diarrhea for the past 3 days. Patient unfortunately is noncommunicative, deaf blind and has a history of seizures and unable to provide any information. When I got to the emergency room patient was found to be hypotensive with his blood pressure as low as about 70. He did appear to be moving his head though although he could not communicate. I instructed the nurse to start patient on vasopressor. He would need to be admitted to the intensive care unit. Patient apparently has traumatic brain injury however further information about all of these not available Past Medical History Cardiac Medical History: Reports: Hypertension Pulmonary Medical History: Neurological Medical History: Reports: Seizures Renal/ Medical History: Psychiatric Medical History: Reports: Dementia, Depression Past Surgical History Past Surgical History: Reports: Other - Unknown Social History Information Source: [facility] Records Smoking Status: Unknown if Ever Smoked Frequency of Alcohol Use: None Hx Recreational Drug Use: No Drugs: None Hx Prescription Drug Abuse: No - Advance Directive Resuscitation Status: Full Code - As per reports Family History Family History: Other - Unable to obtain secondary to TBI mentation Parental Family History Reviewed: No - Unavailable Children Family History Reviewed: No Sibling(s) Family History Reviewed.: No Medication/Allergy Home Medications: Aspirin [Aspirin 81 mg Chewable Tablet] 81 mg PO DAILY 06/18/18 Atorvastatin Calcium [Lipitor 80 mg Tablet] 80 mg PO DAILY 06/18/18 Benztropine Mesylate [Cogentin 1 mg Tablet] 1 mg PO Q8 06/18/18 Guaifenesin [Robitussin Syrup 200 mg/10 ml Ud Cup] 200 mg PO Q4HP PRN MDD 6 DOSES/24HR 06/18/18 Labetalol HCl 800 mg PO Q12 06/18/18 Lacosamide [Vimpat] 200 mg PO Q12 06/18/18 Mirtazapine 7.5 mg PO QHS 06/18/18 [place]-3 Fatty Acids/Fish Oil [[place] 3 Fish Oil Softgel] 1 each PO TID 06/18/18 Ondansetron [Zofran Odt 4 mg Tablet] 4 mg PO Q4HP PRN 06/18/18 Pantoprazole Sodium [Protonix] 40 mg PO DAILY 06/18/18 Polyethylene Glycol 3350 [Miralax Powder 17 gm/Packet] 1 packet PO DAILYP PRN Risperidone [Risperidone Odt] 2 mg PO QHS 06/18/18 Allergies/Adverse Reactions: No Known Allergies Allergy (Verified 06/17/18 13:11) Review of Systems ROS unobtainable: Due to mental status Gastrointestinal: PRESENT: diarrhea Neurological: PRESENT: abnormal movements, abnormal speech, convulsions Physical Exam Vital Signs: Temp Pulse Resp BP Pulse Ox 10 L 91/56 L 97 06/17/18 14:46 06/17/18 14:46 06/17/18 14:46 Intake & Output 06/16/18 06/17/18 06/18/18 06:59 06:59 06:59 Intake Total 1999 Balance 1999 General appearance: PRESENT: other - Chronically ill looking resting tremors noncommunicative Eye exam: PRESENT: other - Chand is apparently blind Teeth exam: PRESENT: poor dentation Neck exam: ABSENT: JVD, thyromegaly Respiratory exam: PRESENT: clear to auscultation judson. ABSENT: chest wall tenderness, rales, rhonchi, wheezes GI/Abdominal exam: PRESENT: normal bowel sounds, soft. ABSENT: distended, guarding, mass, organolmegaly, rebound, tenderness Rectal exam: PRESENT: deferred Neurological exam: PRESENT: alert, awake, motor sensory deficit. ABSENT: oriented to person, oriented to place, oriented to time, oriented to situation, reflexes normal, CN II-XII grossly intact Focused psych exam: PRESENT: restlessness Results Laboratory Results: 06/17/18 14:48 06/17/18 14:48 06/17/18 06/17/18 06/17/18 14:48 14:48 14:48 WBC 10.0 RBC 4.29 L Hgb 12.2 L Hct 36.7 L MCV 86 MCH 28.4 MCHC 33.2 RDW 15.3 H Plt Count 346 Seg Neutrophils % Not Reportable Lymphocytes % Not Reportable Monocytes % Not Reportable Eosinophils % Not Reportable Basophils % Not Reportable Absolute Neutrophils Not Reportable Absolute Lymphocytes Not Reportable Absolute Monocytes Not Reportable Absolute Eosinophils Not Reportable Absolute Basophils Not Reportable Sodium 141.1 Potassium 4.8 Chloride 106 Carbon Dioxide 17 L Anion Gap 18 BUN 57 H Creatinine 2.69 H Est GFR ( Amer) 33 L Est GFR (Non-Af Amer) 27 L Glucose 108 Lactic Acid 4.4 H Calcium 8.9 Total Bilirubin 0.8 AST 24 ALT 28 Alkaline Phosphatase 50 Total Protein 6.0 L Albumin 3.3 L Urine Color Urine Appearance Urine pH Ur Specific [place] Urine Protein Urine Glucose (UA) Urine Ketones Urine Blood Urine Nitrite Ur Leukocyte Esterase Urine WBC (Auto) Urine RBC (Auto) 06/17/18 15:19 WBC RBC Hgb Hct MCV MCH MCHC RDW Plt Count Seg Neutrophils % Lymphocytes % Monocytes % Eosinophils % Basophils % Absolute Neutrophils Absolute Lymphocytes Absolute Monocytes Absolute Eosinophils Absolute Basophils Sodium Potassium Chloride Carbon Dioxide Anion Gap BUN Creatinine Est GFR ( Amer) Est GFR (Non-Af Amer) Glucose Lactic Acid Calcium Total Bilirubin AST ALT Alkaline Phosphatase Total Protein Albumin Urine Color YELLOW Urine Appearance CLOUDY Urine pH 5.0 Ur Specific [place] 1.019 Urine Protein 100 H Urine Glucose (UA) NEGATIVE Urine Ketones NEGATIVE Urine Blood MODERATE H Urine Nitrite NEGATIVE Ur Leukocyte Esterase NEGATIVE Urine WBC (Auto) 5 Urine RBC (Auto) 2 06/17/18 06/17/18 14:48 14:48 Creatine Kinase 213 H CK-MB (CK-2) 8.62 H Troponin I 0.918 Impressions: Chest X-Ray 06/17/18 12:34 IMPRESSION: NO ACUTE RADIOGRAPHIC FINDING IN THE CHEST. Assessment & Plan - Diagnosis (2) Diarrhea Qualifiers: Diarrhea type: presumed infectious Qualified Code(s): R19.7 - Diarrhea, unspecified Is this a current diagnosis for this admission?: Yes (3) Hypotension Qualifiers: Hypotension type: unspecified hypotension type Qualified Code(s): I95.9 - Hypotension, unspecified Is this a current diagnosis for this admission?: Yes (4) Traumatic brain injury Qualifiers: Encounter type: sequela Is this a current diagnosis for this admission?: Yes (5) Septic shock Is this a current diagnosis for this admission?: Yes Plan: Septic shock possible with hypotension, elevated lactic acid, possible Clostridium difficile infection, acute kidney injury. (6) Acute [place] Qualifiers: Myocardial infarction type: unspecified Is this a current diagnosis for this admission?: Yes Plan: Troponin is elevated, no EKG available yet. Will obtain EKG and further consults as needed - Time Time Spent: 50 to 70 Minutes Medications reviewed and adjusted accordingly: Yes Anticipated discharge: SNF Within: Other - Inpatient Certification Based on my medical assessment, after consideration of the patient's comorbidities, presenting symptoms, or acuity I expect that the services needed warrant INPATIENT care.: Yes Medical Necessity: Significant Comorbidiites Make Outpatient Treatment Too Risky , Need Close Monitoring Due to Risk of Patient Decompensation, Need For IV Fluids, Need for IV Antibiotics, Risk of Diagnosis Which Will Require Inpatient Eval/Care/Monitoring - Plan Summary Plan Summary: Patient has a acute renal failure. His creatinine just about a month ago was 0.83 it is 2.69 today with BUN of 57. Patient is also acidotic with a CO2 of 1 7. Clearly he has a prerenal azotemia likely from a vascular volume depletion. His lactic acid is also high. And troponin is elevated at 0.91 which may be secondary to his sepsis. Repeat troponins will be drawn patient has a white count of 10,000 with a bandemia of 14% and toxic vacuoles urinalysis shows no evidence of any infection As patient has had diarrhea we will cover for GI pathogens and I will place him on oral vancomycin if this can be tolerated for presumptive C. difficile colitis. Patient will be admitted to the intensive care unit and will be started on vasopressors. We will continue with aggressive hydration as tolerated. According to the ED doctor the patient is a full code however in the chart there is a mention of a DNR. At this time since this is really unclear what his CODE STATUS disease I will make him a full code pending further verification. Patient's overall prognosis is very poor s
--- NOTE | 2018-06-17 19:53 | ER Document Report ---
ED Blood Pressure Problem - General Chief Complaint: Blood Pressure Problem Stated Complaint: BLOOD PRESSURE ISSUES Time Seen by Provider: 06/17/18 12:33 TRAVEL OUTSIDE OF THE [place] IN LAST 30 DAYS: No - Related Data Allergies/Adverse Reactions: No Known Allergies Allergy (Verified 06/17/18 13:11) Past Medical History - Social History Smoking Status: Unknown if Ever Smoked Chew tobacco use (# tins/day): No Frequency of alcohol use: None Drug Abuse: None Family History: Reviewed & Not Pertinent, Other - Unable to obtain secondary to TBI mentation Patient has suicidal ideation: No Patient has homicidal ideation: No - Past Medical History Cardiac Medical History: Reports: Hx Hypertension Pulmonary Medical History: EENT Medical History: Reports: Eyes - Blind, Ears - Deaf, Other - Nonverbal Neurological Medical History: Reports: Hx Cerebrovascular Accident, Hx Seizures Renal/ Medical History: Reports: Hx Renal Insufficiency. Denies: Hx Peritoneal Dialysis GI Medical History: Reports: Hx Ulcer Musculoskeletal Medical History: Psychiatric Medical History: Reports: Hx Dementia, Hx Depression Past Surgical History: Reports: Other - Unknown - Immunizations Hx Diphtheria, Pertussis, Tetanus Vaccination: Yes Hx Pneumococcal Vaccination: 09/15/09 Physical Exam - Vital signs Vitals: Resp 13 06/17/18 12:20 Course - Vital Signs Vital signs: Temp Pulse Resp BP Pulse Ox 16 104/82 99 06/17/18 19:09 06/17/18 19:09 06/17/18 18:30 - Laboratory Result Diagrams: 06/17/18 14:48 06/17/18 14:48 Laboratory results interpreted by me: 06/17/18 06/17/18 06/17/18 14:48 14:48 14:48 RBC 4.29 L Hgb 12.2 L Hct 36.7 L RDW 15.3 H Band Neutrophils % 14 H Monocytes % (Manual) 15 H Metamyelocytes % 1 H Abs Monocytes (Manual) 1.5 H Carbon Dioxide 17 L BUN 57 H Creatinine 2.69 H Est GFR ( Amer) 33 L Est GFR (Non-Af Amer) 27 L Lactic Acid Direct Bilirubin 0.5 H Creatine Kinase 213 H CK-MB (CK-2) 8.62 H Total Protein 6.0 L Albumin 3.3 L Urine Protein Urine Blood 06/17/18 06/17/18 06/17/18 14:48 15:19 19:19 RBC Hgb Hct RDW Band Neutrophils % Monocytes % (Manual) Metamyelocytes % Abs Monocytes (Manual) Carbon Dioxide BUN Creatinine Est GFR ( Amer) Est GFR (Non-Af Amer) Lactic Acid 4.4 H 4.5 H Direct Bilirubin Creatine Kinase CK-MB (CK-2) Total Protein Albumin Urine Protein 100 H Urine Blood MODERATE H Discharge - Discharge Clinical Impression: Dehydration Hypotension Qualifiers: Hypotension type: unspecified hypotension type Qualified Code(s): I95.9 - Hypotension, unspecified Condition: Stable Disposition: HOME, SELF-CARE Referrals: YARELIS POST MD [Primary Care Provider] - Follow up as needed
[2018-06-17 21:48] LABS: CREATINE KINASE MB 16.5 ng/mL (<4.55)
[2018-06-17 21:52] LABS: TROPONIN I 0.763 ng/mL
--- NOTE | 2018-06-17 23:31 | Operative Report ---
Nonrecallable Operative Report DATE OF SURGERY: 06/17/18 PREOPERATIVE DIAGNOSIS: sepsis POSTOPERATIVE DIAGNOSIS: sepsis OPERATION: 1. ultrasound guided central venous puncture. 2. left IJ central line placement SURGEON: YVON CHAN ANESTHESIA: Local TISSUE REMOVED OR ALTERED: none COMPLICATIONS: none apparent ESTIMATED BLOOD LOSS: minimal PROCEDURE: implants: left IJ central line at 14 cm Procedure: After informed consent was obtained, the pt was laid in the trendelenburg position. The left neck and chest was prepped and draped in a normal sterile fashion. The left IJ was identified on ultrasound. It was compressible with normal flow. The IJ was then cannulated with the supplied access needle under direct ultrasound guidance. The wire was inserted easily. The catheter was the slid over the wire using a modified Seldinger technique. The catheter was aspirated and flushed x3. It returned dark venous, nonpulsatile blood. The catheter was sutured to the skin and a dressing was placed. The procedure was then concluded. All sponge, instrument and needle counts were correct. Condition: critical.
--- NOTE | 2018-06-17 23:56 | RADIOLOGY REPORT (SQ) ---
Portable chest HISTORY: Central line placement. FINDINGS: Left IJ CVC is in place with tip in the mid SVC. No pneumothorax. No pleural effusions. Heart is not enlarged. Aorta is within normal limits. No consolidations. IMPRESSION: Left IJ CVC is in place with no pneumothorax.
[2018-06-18] MEDS: VANCOMYCIN HCL INJ 500 MG VIAL PO SCH ×3 (00:49→11:23)
[2018-06-18] MEDS: NORMAL SALINE 1000 ML 1,000 ML IV PRN ×3 (04:53→20:52)
[2018-06-18 05:38] LABS: HEMATOCRIT 27.8 % (37.9-51.0); MEAN CORPUSCULAR VOLUME 85 fl (80-97); PLATELET COUNT 267 10^3/uL (150-450); RED BLOOD COUNT 3.26 10^6/uL (4.35-5.55); RED CELL DISTRIBUTION WIDTH 15.4 % (11.5-14.0); WHITE BLOOD COUNT 5.5 10^3/uL (4.0-10.5)
[2018-06-18 05:53] LABS: ALANINE AMINOTRANSFERASE 32 U/L (21-72); ALBUMIN 2.4 g/dL (3.5-5.0); ALKALINE PHOSPHATASE 41 U/L (38-126); ANION GAP 6 (5-19); ASPARTATE AMINO TRANSFERASE 32 U/L (17-59); BILIRUBIN,DIRECT 0.4 mg/dL (0.0-0.4); BILIRUBIN,TOTAL 0.4 mg/dL (0.2-1.3); CARBON DIOXIDE 18 mmol/L (22-30); CHLORIDE 117 mmol/L (98-107); CREATINE KINASE 446 U/L (55-170); GLUCOSE 88 mg/dL (75-110); SODIUM 141.4 mmol/L (137-145); TOTAL PROTEIN 4.7 g/dL (6.3-8.2)
[2018-06-18 05:59] LABS: HEMOGLOBIN 9.4 g/dL (13.5-17.0)
[2018-06-18 06:04] LABS: CREATINE KINASE MB 20.2 ng/mL (<4.55); TROPONIN I 1.55 ng/mL
[2018-06-18 06:21] LABS: ABSOLUTE LYMPHOCYTES# (MANUAL) 1.5 10^3/uL (0.5-4.7); ABSOLUTE MONOCYTES # (MANUAL) 0.8 10^3/uL (0.1-1.4); ABSOLUTE NEUTROPHILS# (MANUAL) 3.1 10^3/uL (1.7-8.2); BASOPHILS % (MANUAL) 0 % (0-2); EOSINOPHILS % (MANUAL) 2 % (0-6); LYMPHOCYTES % (MANUAL) 27 % (13-45); MONOCYTES % (MANUAL) 15 % (3-13); SEGMENTED NEUTROPHILS % (MAN) 56 % (42-78); TOTAL CELLS COUNTED 100
[2018-06-18 06:22] LABS: ANISOCYTOSIS 1+; PLATELET COMMENT ADEQUATE; POLYCHROMASIA 1+
[2018-06-18 07:39] LABS: BLOOD UREA NITROGEN 36 mg/dL (7-20)
[2018-06-18] MEDS ORDERED: FAMOTIDINE INJ/PF 20 MG/2 ML SDV IV SCH (10:00)
[2018-06-18] MEDS ORDERED: PHARMACY COMMUNICATION ORDER MC NR (10:00)
[2018-06-18] MEDS ORDERED: CEFTRIAXONE 1 GM/D5W RTU 1 GM/50 ML RTUPB IV SCH (10:00)
--- NOTE | 2018-06-18 10:52 | RADIOLOGY REPORT (SQ) ---
EXAM DESCRIPTION: KUB/ABDOMEN (SINGLE VIEW) COMPLETED DATE/TIME: 06/18/2018 10:26 am REASON FOR STUDY: Check Placement of NG Tube COMPARISON: None. NUMBER OF VIEWS: One view. TECHNIQUE: Supine radiographic image of the abdomen acquired. LIMITATIONS: None. FINDINGS: BOWEL GAS PATTERN: Nonspecific bowel-gas pattern. No pneumoperitoneum. CALCIFICATIONS: No suspicious calcifications. SOFT TISSUES: No gross mass or suggestion of organomegaly. HARDWARE: None in the abdomen. BONES: No acute fracture. No worrisome bone lesions. OTHER: NG tube overlying stomach. Left IJ line with tip overlying SVC. IMPRESSION: NG tube overlying stomach. TECHNICAL DOCUMENTATION: JOB ID: [id number] [employer]- All Rights Reserved Reading location - IP/workstation name: [email or web address]
[2018-06-18] MEDS: CEFTRIAXONE SODIUM 1,000 MG in DEXTROSE 5%-WATER 50 ML IV SCH (10:57)
[2018-06-18] MEDS: ENOXAPARIN SODIUM INJ 30 MG/0.3 ML DISP.SYRIN SUBCUT SCH (10:58)
--- NOTE | 2018-06-18 13:10 | PDOC PROGRESS REPORT ---
Subjective Progress Note for:: 06/18/18 Subjective:: Patient admitted last night. His condition remains pretty tenuous. Is responding only to deep pain at this time. He is off Levophed. Has not had any bowel movement and so it is unclear if he actually had diarrhea as the history from the ER was that patient had been having multiple bowel movements. Of note also this is elevated troponin and acute EKG changes which may be secondary to septic shock however given patient's poor functional status and is comorbidities conservative management is the best course Reason For Visit: SEPTIC SHOCK, SYLVESTER, DIARRHEA Physical Exam Vital Signs: Temp Pulse Resp BP Pulse Ox 97.3 F 76 8 L 109/82 99 06/18/18 10:00 06/18/18 10:00 06/18/18 10:17 06/18/18 10:17 06/18/18 10:17 Intake & Output 06/17/18 06/18/18 06/19/18 06:59 06:59 06:59 Intake Total 1110 1918 Output Total 525 125 Balance 585 1793 Weight 47.3 kg General appearance: PRESENT: no acute distress, thin, other - Undernourished Responds only to pain Eye exam: PRESENT: PERRLA. ABSENT: scleral icterus Mouth exam: PRESENT: dry mucosa Teeth exam: PRESENT: poor dentation Neck exam: ABSENT: meningismus, tenderness Respiratory exam: PRESENT: crackles, rhonchi Cardiovascular exam: PRESENT: RRR, +S1, +S2 Pulses: PRESENT: normal dorsalis pedis pul GI/Abdominal exam: PRESENT: normal bowel sounds, soft. ABSENT: distended, guarding, mass, organolmegaly, rebound, tenderness Rectal exam: PRESENT: deferred Musculoskeletal exam: PRESENT: other - leg jerking. ABSENT: ambulatory Neurological exam: PRESENT: altered. ABSENT: oriented to person, oriented to place, oriented to time, oriented to situation Psychiatric exam: PRESENT: other - unable to evaluate Results Laboratory Results: 06/18/18 05:15 06/18/18 05:15 06/17/18 06/18/18 06/18/18 19:19 01:00 05:15 WBC 5.5 RBC 3.26 L Hgb 9.4 L D Hct 27.8 L MCV 85 MCH 29.0 MCHC 34.0 RDW 15.4 H Plt Count 267 Seg Neutrophils % Not Reportable Lymphocytes % Not Reportable Monocytes % Not Reportable Eosinophils % Not Reportable Basophils % Not Reportable Absolute Neutrophils Not Reportable Absolute Lymphocytes Not Reportable Absolute Monocytes Not Reportable Absolute Eosinophils Not Reportable Absolute Basophils Not Reportable Sodium Potassium Chloride Carbon Dioxide Anion Gap BUN Creatinine Est GFR ( Amer) Est GFR (Non-Af Amer) Glucose Lactic Acid 4.5 H 2.2 H Calcium Total Bilirubin AST ALT Alkaline Phosphatase Total Protein Albumin 06/18/18 05:15 WBC RBC Hgb Hct MCV MCH MCHC RDW Plt Count Seg Neutrophils % Lymphocytes % Monocytes % Eosinophils % Basophils % Absolute Neutrophils Absolute Lymphocytes Absolute Monocytes Absolute Eosinophils Absolute Basophils Sodium 141.4 Potassium 4.0 Chloride 117 H Carbon Dioxide 18 L Anion Gap 6 BUN 36 H D Creatinine 1.10 Est GFR ( Amer) > 60 Est GFR (Non-Af Amer) > 60 Glucose 88 Lactic Acid Calcium 8.0 L Total Bilirubin 0.4 AST 32 ALT 32 Alkaline Phosphatase 41 Total Protein 4.7 L Albumin 2.4 L 06/17/18 06/17/18 06/18/18 20:55 20:55 01:00 Creatine Kinase 403 H CK-MB (CK-2) 16.50 H Troponin I 0.763 1.310 06/18/18 06/18/18 06/18/18 01:00 01:00 05:15 Creatine Kinase 499 H 446 H CK-MB (CK-2) 21.60 H Troponin I 06/18/18 05:15 Creatine Kinase CK-MB (CK-2) 20.20 H Troponin I 1.550 Impressions: Chest X-Ray 06/17/18 12:34 IMPRESSION: NO ACUTE RADIOGRAPHIC FINDING IN THE CHEST. KUB X-Ray 06/18/18 09:48 IMPRESSION: NG tube overlying stomach. Assessment & Plan - Diagnosis (1) ARF (acute renal failure) Is this a current diagnosis for this admission?: Yes Plan: Kidney function is improved to more than 50% overnight with hydration. He likely has acute tubular necrosis from sepsis, likely infection and possibly from distributive shock. Remains acidotic which is consistent with his infection and kidney function. Continue hydration and continue to monitor kidney function (2) Diarrhea Qualifiers: Diarrhea type: presumed infectious Qualified Code(s): R19.7 - Diarrhea, unspecified Is this a current diagnosis for this admission?: Yes Plan: he has had no bowel movement apparently since admission. I will discontinue vancomycin. (3) Hypotension Qualifiers: Hypotension type: unspecified hypotension type Qualified Code(s): I95.9 - Hypotension, unspecified Is this a current diagnosis for this admission?: Yes Plan: Resolved apparently off Levophed now (4) Traumatic brain injury Qualifiers: Encounter type: sequela Is this a current diagnosis for this admission?: Yes (5) Septic shock Is this a current diagnosis for this admission?: Yes Plan: Septic shock with hypotension, elevated lactic acid, acute kidney injury. There may also be a component of acute IL contributing to the shock although it is unclear which may have come first as I still see no evidence of an acute infection. We will continue with empiric ceftriaxone. (6) Acute IL Qualifiers: Myocardial infarction type: unspecified Is this a current diagnosis for this admission?: Yes Plan: NSTEMI It is unclear if this is secondary to the septic shock, which is the most likely scenario or if this is a primary event. At any rate given patient' s comorbidities and is very poor functional status medical management is recommended. Will start aspirin as tolerated. Cardiology consult has been obtained. I would not start this patient on any anticoagulant except for the prophylactic anticoagulant he is on. I will hold off on any statin or any beta- blockers although he is on beta-tracy as outpatient. This should be restarted once his blood pressure is acceptable - Time Time Spent with patient: 25-34 minutes Medications reviewed and adjusted accordingly: Yes Anticipated discharge: SNF Within: Other - Inpatient Certification Based on my medical assessment, after consideration of the patient's comorbidities, presenting symptoms, or acuity I expect that the services needed warrant INPATIENT care.: Yes Medical Necessity: Significant Comorbidiites Make Outpatient Treatment Too Risky , Need For IV Fluids, Need for IV Antibiotics, Risk of Complication if Not Cared For in Hospital - Plan Summary Plan Summary: Full code pending discussion with his sister. His prognosis is pretty poor. NG tube will be inserted and we will start him on his chronic medications as medically appropriate. Patient has underlying traumatic brain injury which is also complicating his care
[2018-06-18] MEDS: VANCOMYCIN HCL INJ 500 MG VIAL NG SCH ×3 (13:26→23:38)
[2018-06-18] MEDS ORDERED: (PENDING PHARMACY ID) (Lacosamide [Vimpat] 200 MG) NG SCH (17:00)
[2018-06-18] MEDS: ATORVASTATIN CALCIUM 80 MG TABLET NG SCH (18:11)
[2018-06-18] MEDS: ASPIRIN 81 MG TABLET, CHEWABLE NG SCH (18:11)
[2018-06-18] MEDS: LACOSAMIDE 100 MG TABLET NG SCH (18:11)
--- NOTE | 2018-06-18 19:05 | EKG REPORT ---
SEVERITY:- ABNORMAL ECG - SINUS RHYTHM CONSIDER ANTEROSEPTAL INFARCT NONSPECIFIC T ABNORMALITIES, DIFFUSE LEADS : Confirmed by: Deejay May 18-Jun-2018 19:04:25
--- NOTE | 2018-06-18 19:08 | EKG REPORT ---
SEVERITY:- ABNORMAL ECG - SINUS RHYTHM BIATRIAL ABNORMALITIES PROBABLE ANTERIOR INFARCT, ACUTE NONSPECIFIC T ABNORMALITIES, INFERIOR LEADS : Confirmed by: Deejay May 18-Jun-2018 19:08:04
--- NOTE | 2018-06-18 19:08 | EKG REPORT ---
SEVERITY:- ABNORMAL ECG - PROBABLE SINUS RHYTHM, CAN NOT R/O ATRIAL FLUTTER, REC APC CANNOT R/O ANTEROSEPTAL INFARCT, OLD BORDERLINE T ABNORMALITIES, DIFFUSE LEADS LATERAL LEADS ARE ALSO INVOLVED : Confirmed by: Deejay May 18-Jun-2018 19:07:30
[2018-06-18] MEDS ORDERED: RISPERIDONE 1 MG TABLET ONE (21:54)
[2018-06-18] MEDS ORDERED: RISPERIDONE 2 MG NG SCH (22:00)
[2018-06-18] MEDS: RISPERIDONE 1 MG TAB.RAPDIS NG SCH (22:04)
[2018-06-19] MEDS: NORMAL SALINE 1000 ML 1,000 ML IV PRN ×3 (02:14→17:48)
[2018-06-19] MEDS: LACOSAMIDE 100 MG TABLET NG SCH ×2 (05:16→17:42)
[2018-06-19] MEDS: VANCOMYCIN HCL INJ 500 MG VIAL NG SCH (05:16)
[2018-06-19 06:10] LABS: ABSOLUTE EOSINOPHILS # (AUTO) 0.2 10^3/uL (0.0-0.6); ABSOLUTE MONOCYTES (AUTO) 0.6 10^3/uL (0.1-1.4); ABSOLUTE NEUT (AUTO) 2.5 10^3/uL (1.7-8.2); BASOPHILS % (AUTO) 0.5 % (0-2); EOSINOPHILS % (AUTO) 4.7 % (0-6); HEMATOCRIT 26.4 % (37.9-51.0); LYMPHOCYTES % (AUTO) 22.8 % (13-45); MEAN CORPUSCULAR HEMOGLOBIN 28.8 pg (27.0-33.4); MEAN CORPUSCULAR HGB CONC 34.1 g/dL (32.0-36.0); MEAN CORPUSCULAR VOLUME 85 fl (80-97); MONOCYTES % (AUTO) 13.1 % (3-13); PLATELET COUNT 308 10^3/uL (150-450); RED BLOOD COUNT 3.12 10^6/uL (4.35-5.55); RED CELL DISTRIBUTION WIDTH 15.2 % (11.5-14.0); SEGMENTED NEUTROPHILS % (AUTO) 58.9 % (42-78); TOTAL CELLS COUNTED % (AUTO) 100 %; WHITE BLOOD COUNT 4.3 10^3/uL (4.0-10.5)
[2018-06-19 06:30] LABS: ANION GAP 8 (5-19); BLOOD UREA NITROGEN 12 mg/dL (7-20); CALCIUM 7.9 mg/dL (8.4-10.2); CARBON DIOXIDE 20 mmol/L (22-30); CHLORIDE 111 mmol/L (98-107); CREATINE KINASE 349 U/L (55-170); GLUCOSE 78 mg/dL (75-110); POTASSIUM 3.3 mmol/L (3.6-5.0); SODIUM 138.8 mmol/L (137-145)
[2018-06-19 06:42] LABS: CREATINE KINASE MB 14.9 ng/mL (<4.55); TROPONIN I 0.251 ng/mL
[2018-06-19] MEDS ORDERED: POTASSIUM CHLORIDE 10 MEQ CAPSULE.ER PO ONE (08:00)
[2018-06-19] MEDS: CEFTRIAXONE SODIUM 1,000 MG in DEXTROSE 5%-WATER 50 ML IV SCH (09:58)
[2018-06-19] MEDS: ATORVASTATIN CALCIUM 80 MG TABLET NG SCH (09:58)
[2018-06-19] MEDS: ASPIRIN 81 MG TABLET, CHEWABLE NG SCH (09:58)
[2018-06-19] MEDS: ENOXAPARIN SODIUM INJ 30 MG/0.3 ML DISP.SYRIN SUBCUT SCH (09:58)
[2018-06-19] MEDS ORDERED: LABETALOL HCL 200 MG TABLET NG SCH (11:30)
--- NOTE | 2018-06-19 11:44 | PDOC PROGRESS REPORT ---
Subjective Progress Note for:: 06/19/18 Subjective:: Patient now awake, still have to rouse him but he ate a good breakfast this am. He is hemodynamically stable. Will transfer out of ICU Code status confirmed with sister- he is a full code Reason For Visit: SEPTIC SHOCK, SYLVESTER, DIARRHEA Physical Exam Vital Signs: Temp Pulse Resp BP Pulse Ox 99.0 F 66 13 119/93 H 99 06/19/18 09:51 06/18/18 19:00 06/19/18 06:00 06/19/18 05:21 06/19/18 06:00 Intake & Output 06/18/18 06/19/18 06/20/18 06:59 06:59 06:59 Intake Total 1110 3773 863 Output Total 525 2730 695 Balance 585 1043 168 Weight 47.3 kg 52.3 kg General appearance: PRESENT: no acute distress, thin Head exam: PRESENT: atraumatic Eye exam: PRESENT: other - blind Ear exam: PRESENT: other - deaf Teeth exam: PRESENT: poor dentation Respiratory exam: PRESENT: clear to auscultation judson. ABSENT: rales, rhonchi, wheezes Cardiovascular exam: PRESENT: RRR. ABSENT: diastolic murmur, rubs, systolic murmur GI/Abdominal exam: PRESENT: normal bowel sounds, soft. ABSENT: distended, guarding, mass, organolmegaly, rebound, tenderness Rectal exam: PRESENT: deferred Extremities exam: PRESENT: full ROM. ABSENT: calf tenderness, clubbing, pedal edema Musculoskeletal exam: PRESENT: normal inspection Neurological exam: PRESENT: awake, motor sensory deficit. ABSENT: oriented to person, oriented to place, oriented to time, oriented to situation, CN II-XII grossly intact Focused psych exam: PRESENT: other Results Laboratory Results: 06/19/18 05:55 06/19/18 05:55 06/19/18 06/19/18 05:55 05:55 WBC 4.3 RBC 3.12 L Hgb 9.0 L Hct 26.4 L MCV 85 MCH 28.8 MCHC 34.1 RDW 15.2 H Plt Count 308 Seg Neutrophils % 58.9 Lymphocytes % 22.8 Monocytes % 13.1 H Eosinophils % 4.7 Basophils % 0.5 Absolute Neutrophils 2.5 Absolute Lymphocytes 1.0 Absolute Monocytes 0.6 Absolute Eosinophils 0.2 Absolute Basophils 0.0 Sodium 138.8 Potassium 3.3 L Chloride 111 H Carbon Dioxide 20 L Anion Gap 8 BUN 12 Creatinine 0.57 Est GFR ( Amer) > 60 Est GFR (Non-Af Amer) > 60 Glucose 78 Calcium 7.9 L 06/17/18 06/17/18 06/18/18 20:55 20:55 01:00 Creatine Kinase 403 H CK-MB (CK-2) 16.50 H Troponin I 0.763 1.310 06/18/18 06/18/18 06/18/18 01:00 01:00 05:15 Creatine Kinase 499 H 446 H CK-MB (CK-2) 21.60 H Troponin I 06/18/18 06/19/18 06/19/18 05:15 05:55 05:55 Creatine Kinase 349 H CK-MB (CK-2) 20.20 H 14.90 H Troponin I 1.550 0.251 Impressions: Chest X-Ray 06/17/18 12:34 IMPRESSION: NO ACUTE RADIOGRAPHIC FINDING IN THE CHEST. KUB X-Ray 06/18/18 09:48 IMPRESSION: NG tube overlying stomach. Assessment & Plan - Diagnosis (1) ARF (acute renal failure) Is this a current diagnosis for this admission?: Yes Plan: Kidney function is completely normalized. (2) Diarrhea Qualifiers: Diarrhea type: presumed infectious Qualified Code(s): R19.7 - Diarrhea, unspecified Is this a current diagnosis for this admission?: Yes Plan: Patient has had no diarrhea since admission. Vancomycin has been discontinued as there is no evidence of C. difficile infection (3) Hypotension Qualifiers: Hypotension type: unspecified hypotension type Qualified Code(s): I95.9 - Hypotension, unspecified Is this a current diagnosis for this admission?: Yes Plan: Resolved after a few hours of pressor support (4) Traumatic brain injury Qualifiers: Encounter type: sequela Is this a current diagnosis for this admission?: Yes (5) Septic shock Is this a current diagnosis for this admission?: Yes Plan: Septic shock with hypotension, elevated lactic acid, acute kidney injury. There may also be a component of acute MT contributing to the shock although it is unclear which may have come first as I continue to see no evidence of an acute infection. We will continue with empiric ceftriaxone. (6) Acute MT Qualifiers: Myocardial infarction type: unspecified Is this a current diagnosis for this admission?: Yes Plan: Patient was on labetalol 800 mg twice a day prehospitalization. I started him back on a low labetalol dose as his blood pressure is still somewhat borderline. I will hold off on nitrate for now. Cardiology consult appreciated - Time Time Spent with patient: 25-34 minutes Medications reviewed and adjusted accordingly: Yes Anticipated discharge: SNF - Inpatient Certification Based on my medical assessment, after consideration of the patient's comorbidities, presenting symptoms, or acuity I expect that the services needed warrant INPATIENT care.: Yes Medical Necessity: Need For IV Fluids, Need for IV Antibiotics
[2018-06-19] MEDS: METOPROLOL TARTRATE 25 MG TABLET PO SCH ×2 (15:03→21:27)
[2018-06-19] MEDS: NITROGLYCERIN 2% OINTMENT 1 GM PACKET TP SCH ×2 (15:03→21:26)
--- NOTE | 2018-06-19 20:25 | Progress Note ---
Provider Note Provider Note: CARDIOLOGY PROGRESS NOTE by Dr. Ramandeep Moreira on 06/19/2018. Subjective: The patient remains status quo. He does not respond to some verbal stimuli. He does not appear to be in any acute distress. He does not appear to be in any pain. There is no arrhythmias seen on the monitor. His troponin I is trending down. PHYSICAL EXAMINATION: The patient appears to be chronically ill and is a frail build. He does not appear to be in any distress. Selected Entries 06/18/18 06/19/18 12:00 12:20 Temperature 97.5 F Temperature Core Source Core 98.8 F Temperature Pulse Rate 69 Heart Rate ( 70 Monitors) Respiratory 9 L 16 Rate Blood Pressure 125/95 H Blood Pressure 122/90 H [Left Upper Arm ] Blood Pressure 105 Mean Blood Pressure 100 Mean [Left Upper Arm] Blood Pressure 122 Systolic [Left Upper Arm] O2 Sat by Pulse 100 100 Oximetry Oxygen Delivery Room Air Method ( includes room air) HEAD: Appears to be normocephalic. EYES: Pupils are equal round regular reactive to light. There is no conjunctival pallor. There is no scleral icterus. ENT is negative. SKIN: There is no skin lesions or skin rashes. There is no petechia or ecchymosis. NECK: Neck is supple there is no JVD. Carotids are equal there is no bruits. There is no lymphadenopathy. There is no goiter. Trachea central. LUNGS: Is clear to auscultation percussion. HEART S1-S2 is heard there is no S3 gallop there is no S4 gallop the systolic murmur left sternal border and apex there is no rub ABDOMEN: Soft nontender there is no hepatosplenomegaly, and bowel sounds well heard. Extremities femorals are well felt. There is no femoral bruits. Leg pulses are well felt. There is no DVT or cellulitis. There is no pedal edema. There is no sinus or clubbing. [employer] at times the patient moves all 4 extremities. Patient will not cooperate for [employer] and psychiatric exam. 06/18/18 06/18/18 06/18/18 01:00 01:00 01:00 WBC Hgb Hct Plt Count Sodium Potassium Chloride Carbon Dioxide Anion Gap BUN Creatinine Est GFR (Non-Af Amer) Glucose Lactic Acid Calcium Total Bilirubin Direct Bilirubin Neonat Total Bilirubin Neonat Direct Bilirubin Neonat Indirect Bili AST ALT Alkaline Phosphatase Creatine Kinase 499 H CK-MB (CK-2) 21.60 H Troponin I 1.310 Total Protein Albumin 06/18/18 06/18/18 06/18/18 01:00 05:15 05:15 WBC 5.5 Hgb 9.4 L D Hct 27.8 L Plt Count 267 Sodium 141.4 Potassium 4.0 Chloride 117 H Carbon Dioxide 18 L Anion Gap 6 BUN 36 H D Creatinine 1.10 Est GFR (Non-Af Amer) > 60 Glucose 88 Lactic Acid 2.2 H Calcium 8.0 L Total Bilirubin 0.4 Direct Bilirubin 0.4 Neonat Total Bilirubin Not Reportable Neonat Direct Bilirubin Not Reportable Neonat Indirect Bili Not Reportable AST 32 ALT 32 Alkaline Phosphatase 41 Creatine Kinase 446 H CK-MB (CK-2) Troponin I Total Protein 4.7 L Albumin 2.4 L 06/18/18 06/19/18 06/19/18 05:15 05:55 05:55 WBC 4.3 Hgb 9.0 L Hct 26.4 L Plt Count 308 Sodium 138.8 Potassium 3.3 L Chloride 111 H Carbon Dioxide 20 L Anion Gap BUN 12 Creatinine 0.57 Est GFR (Non-Af Amer) > 60 Glucose Lactic Acid Calcium 7.9 L Total Bilirubin Direct Bilirubin Neonat Total Bilirubin Neonat Direct Bilirubin Neonat Indirect Bili AST ALT Alkaline Phosphatase Creatine Kinase CK-MB (CK-2) 20.20 H Troponin I 1.550 Total Protein Albumin 06/19/18 05:55 WBC Hgb Hct Plt Count Sodium Potassium Chloride Carbon Dioxide Anion Gap BUN Creatinine Est GFR (Non-Af Amer) Glucose Lactic Acid Calcium Total Bilirubin Direct Bilirubin Neonat Total Bilirubin Neonat Direct Bilirubin Neonat Indirect Bili AST ALT Alkaline Phosphatase Creatine Kinase CK-MB (CK-2) 14.90 H Troponin I 0.251 Total Protein Albumin 06/17/18 12:35 Normal Saline 1000 ml [NaCl 0.9% 1000 ml IV Soln] 1,000 ml IV BOLUS 06/17/18 13:08 Normal Saline 1000 ml [NaCl 0.9% 1000 ml IV Soln] 1,000 ml IV BOLUS 06/17/18 17:04 Ceftriaxone Sodium [Rocephin Inj 1000 mg Vial] 1,000 mg IV IVBAG (ED) ONE 06/17/18 17:11 Normal Saline 1000 ml [NaCl 0.9% 1000 ml IV Soln] 1,000 ml IV BOLUS 06/17/18 18:34 Norepinephrine Bitartrate [Levophed Inj/Pf 4 mg/4 ml Sdv] 4 mg IV .STK-MED ONE 06/17/18 22:00 Normal Saline [Saline Flush 2.5 ml Monoject Prefil Syrin] 2.5 ml IV Q8 06/18/18 01:29 Flu Vacc [id number](6Mos Up)/Pf [Fluarix Adlt Quad Vac 0.5 ml Syr] 0.5 ml IM .DISCHARGE PRN 06/18/18 04:50 Normal Saline 1000 ml [NaCl 0.9% 1000 ml IV Soln] 1,000 ml IV CONTINUOUS 06/18/18 10:00 Enoxaparin Sodium [Lovenox Inj 30 mg/0.3 ml Disp.syrin] 30 mg SUBCUT DAILY Pharmacy Communication [Medication Communication Order] 1 each MC .NOTICE NR 06/18/18 11:00 Ceftriaxone Sodium [Rocephin Inj 1000 mg Vial] 1,000 mg Dextrose 5%-Water [ D5w 50 ml IV Soln] 50 ml IV DAILY 06/18/18 13:00 Vancomycin HCl [Vancocin Inj 500 mg Vial] 250 mg NG Q6 06/18/18 17:00 Aspirin [Aspirin 81 mg Chewable Tablet] 81 mg NG DAILY Atorvastatin Calcium [Lipitor 80 mg Tablet] 80 mg NG DAILY 06/18/18 18:00 Lacosamide [Vimpat 100 mg Tablet] 200 mg NG Q12A 06/18/18 21:54 Risperidone [Risperdal 1 mg Tablet] 1 mg .ROUTE .ST-MED ONE 06/18/18 22:00 Risperidone [Risperdal M-Tab 1 mg Odt Tablet] 2 mg NG QHS Impression/RECOMMENDATION: 1. Elevated CPK-MB and Troponin I and EKG Changes. Hence Need to Treat This As a Non-ST Elevation AR, As the Patient Is Unable to Give a History of Chest Pain or Not. That the troponin I is trending down. Since the Blood Pressure Is Now Stabilized. Would Recommend Adding a Small Dose of Beta-Stacey and Increase It As Tolerated. Also Will Place the Patient on Nitropaste, and Then Convert That to Long-Acting Topical Nitrate. Note That the Patient Is Not a Candidate for Any Aggressive Treatment Such As Cardiac Catheterization, Percutaneous or Bypass Graft Revascularization Procedures. Recommend Continue the Patient's Aspirin. We will start the patient on small dose of beta-stacey , and increase as tolerated. We will also place on the patient on topical nitrates, in the form of Nitropaste 0.5 g to chest wall every 8 hours, and then transition to a once a day long-acting topical nitrates. 2. Diarrhea: Etiology Not Known. 3. HYPOTENSION: Resolved Secondary to Septic Shock. 4. SEPTIC SHOCK: Etiology of the Source of Infection to Be Determined. Continue Antibiotics and Fluids. 5. History of Traumatic Brain Injury with Blindness, Deafness and Unresponsiveness. 6. Hypertension. 7.. Would Maximize the Patient's Medical Treatment. Of note his medications have been reviewed medications added. 40 minutes spent on this patient more than 50% of time spent in direct patient care. Medical decision making is of high complexity. Discussed with the hospitalist taking care of the patient. Dr. May covering me tomorrow.
[2018-06-19] MEDS: RISPERIDONE 1 MG TAB.RAPDIS NG SCH (21:26)
[2018-06-20] MEDS: NORMAL SALINE 1000 ML 1,000 ML IV PRN ×2 (01:13→20:17)
[2018-06-20] MEDS: NITROGLYCERIN 2% OINTMENT 1 GM PACKET TP SCH ×3 (06:23→22:09)
[2018-06-20 06:28] LABS: ANION GAP 8 (5-19); BLOOD UREA NITROGEN 5 mg/dL (7-20); CALCIUM 8.1 mg/dL (8.4-10.2); CARBON DIOXIDE 21 mmol/L (22-30); CHLORIDE 110 mmol/L (98-107); GLUCOSE 78 mg/dL (75-110); POTASSIUM 3.4 mmol/L (3.6-5.0); SODIUM 138.8 mmol/L (137-145)
[2018-06-20 08:39] LABS: ABSOLUTE EOSINOPHILS # (AUTO) 0.2 10^3/uL (0.0-0.6); ABSOLUTE LYMPHOCYTES (AUTO) 1.6 10^3/uL (0.5-4.7); ABSOLUTE MONOCYTES (AUTO) 0.6 10^3/uL (0.1-1.4); ABSOLUTE NEUT (AUTO) 2.1 10^3/uL (1.7-8.2); BASOPHILS % (AUTO) 0.2 % (0-2); EOSINOPHILS % (AUTO) 3.5 % (0-6); HEMATOCRIT 26.3 % (37.9-51.0); HEMOGLOBIN 8.9 g/dL (13.5-17.0); LYMPHOCYTES % (AUTO) 35.2 % (13-45); MEAN CORPUSCULAR HEMOGLOBIN 28.4 pg (27.0-33.4); MEAN CORPUSCULAR HGB CONC 33.8 g/dL (32.0-36.0); MEAN CORPUSCULAR VOLUME 84 fl (80-97); MONOCYTES % (AUTO) 14.4 % (3-13); PLATELET COUNT 324 10^3/uL (150-450); RED BLOOD COUNT 3.13 10^6/uL (4.35-5.55); SEGMENTED NEUTROPHILS % (AUTO) 46.7 % (42-78); TOTAL CELLS COUNTED % (AUTO) 100 %; WHITE BLOOD COUNT 4.5 10^3/uL (4.0-10.5)
[2018-06-20] MEDS: METOPROLOL TARTRATE 25 MG TABLET PO SCH ×2 (10:52→22:10)
[2018-06-20] MEDS: CEFTRIAXONE SODIUM 1,000 MG in DEXTROSE 5%-WATER 50 ML IV SCH (10:52)
[2018-06-20] MEDS: LACOSAMIDE 100 MG TABLET NG SCH ×3 (10:52→22:13)
[2018-06-20] MEDS: ASPIRIN 81 MG TABLET, CHEWABLE NG SCH (10:52)
[2018-06-20] MEDS: ATORVASTATIN CALCIUM 80 MG TABLET NG SCH (10:52)
[2018-06-20] MEDS: ENOXAPARIN SODIUM INJ 30 MG/0.3 ML DISP.SYRIN SUBCUT SCH (10:53)
[2018-06-20] MEDS ORDERED: POTASSIUM CHLORIDE 10 MEQ CAPSULE.ER PO ONE (11:30)
[2018-06-20] MEDS: MAGNESIUM SULFATE/D5W 1 GM/100 ML RTUPB IV SCH ×3 (13:20→22:13)
--- NOTE | 2018-06-20 14:35 | PDOC PROGRESS REPORT ---
Subjective Reason For Visit: SEPTIC SHOCK, SYLVESTER, DIARRHEA Physical Exam Vital Signs: Temp Pulse Resp BP Pulse Ox 97.7 F 54 L 16 118/81 99 06/20/18 11:44 06/20/18 11:44 06/20/18 11:44 06/20/18 11:44 06/20/18 11:44 Intake & Output 06/19/18 06/20/18 06/21/18 06:59 06:59 06:59 Intake Total 3773 4088 Output Total 2730 3385 Balance 1043 703 Weight 52.3 kg 51 kg General appearance: PRESENT: no acute distress - undernourished, thin Head exam: PRESENT: atraumatic Eye exam: PRESENT: conjunctival injection Teeth exam: PRESENT: dental caries, poor dentation Neck exam: ABSENT: carotid bruit, JVD, lymphadenopathy, thyromegaly Respiratory exam: PRESENT: clear to auscultation judson, unlabored Cardiovascular exam: PRESENT: RRR. ABSENT: diastolic murmur, rubs, systolic murmur GI/Abdominal exam: PRESENT: normal bowel sounds, soft. ABSENT: distended, guarding, mass, organolmegaly, rebound, tenderness Rectal exam: PRESENT: deferred Musculoskeletal exam: ABSENT: ambulatory, full ROM Neurological exam: PRESENT: altered, other - unable to evaluate Psychiatric exam: PRESENT: other - unable to evaluate Results Laboratory Results: 06/20/18 06:34 06/20/18 05:00 06/20/18 06/20/18 05:00 06:34 WBC 4.5 RBC 3.13 L Hgb 8.9 L Hct 26.3 L MCV 84 MCH 28.4 MCHC 33.8 RDW 15.0 H Plt Count 324 Seg Neutrophils % 46.7 Lymphocytes % 35.2 Monocytes % 14.4 H Eosinophils % 3.5 Basophils % 0.2 Absolute Neutrophils 2.1 Absolute Lymphocytes 1.6 Absolute Monocytes 0.6 Absolute Eosinophils 0.2 Absolute Basophils 0.0 Sodium 138.8 Potassium 3.4 L Chloride 110 H Carbon Dioxide 21 L Anion Gap 8 BUN 5 L Creatinine 0.52 Est GFR ( Amer) > 60 Est GFR (Non-Af Amer) > 60 Glucose 78 Calcium 8.1 L Magnesium 1.4 L 06/17/18 06/17/18 06/18/18 20:55 20:55 01:00 Creatine Kinase 403 H CK-MB (CK-2) 16.50 H Troponin I 0.763 1.310 06/18/18 06/18/18 06/18/18 01:00 01:00 05:15 Creatine Kinase 499 H 446 H CK-MB (CK-2) 21.60 H Troponin I 06/18/18 06/19/18 06/19/18 05:15 05:55 05:55 Creatine Kinase 349 H CK-MB (CK-2) 20.20 H 14.90 H Troponin I 1.550 0.251 Impressions: Chest X-Ray 06/17/18 12:34 IMPRESSION: NO ACUTE RADIOGRAPHIC FINDING IN THE CHEST. KUB X-Ray 06/18/18 09:48 IMPRESSION: NG tube overlying stomach. Assessment & Plan - Diagnosis (1) ARF (acute renal failure) Is this a current diagnosis for this admission?: Yes Plan: Secondary to ATN, resolved (2) Diarrhea Qualifiers: Diarrhea type: presumed infectious Qualified Code(s): R19.7 - Diarrhea, unspecified Is this a current diagnosis for this admission?: Yes (3) Hypotension Qualifiers: Hypotension type: unspecified hypotension type Qualified Code(s): I95.9 - Hypotension, unspecified Is this a current diagnosis for this admission?: Yes Plan: Secondary to shock. Resolved (4) Traumatic brain injury Qualifiers: Encounter type: sequela Is this a current diagnosis for this admission?: Yes (5) Septic shock Is this a current diagnosis for this admission?: Yes Plan: Septic shock with hypotension, elevated lactic acid, acute kidney injury. There may also be a component of acute LA contributing to the shock although it is unclear which may have come first as I continue to see no evidence of an acute infection. We will continue with empiric ceftriaxone. Review and dc if needed (6) Acute LA Qualifiers: Myocardial infarction type: unspecified Is this a current diagnosis for this admission?: Yes Plan: Beta tracy ASA Statin Conservative management (7) Protein-calorie malnutrition, severe Is this a current diagnosis for this admission?: Yes Plan: Encourage supplements (8) Anemia Qualifiers: Anemia type: unspecified type Qualified Code(s): D64.9 - Anemia, unspecified Is this a current diagnosis for this admission?: Yes Plan: Likely chronic. No evidence of acute blood loss Will check iron stores (9) Hypomagnesemia Is this a current diagnosis for this admission?: Yes Plan: Replace - Time Time Spent with patient: 15-24 minutes Medications reviewed and adjusted accordingly: Yes Anticipated discharge: SNF Within: within 48 hours - Inpatient Certification Based on my medical assessment, after consideration of the patient's comorbidities, presenting symptoms, or acuity I expect that the services needed warrant INPATIENT care.: Yes Medical Necessity: Need Close Monitoring Due to Risk of Patient Decompensation, Risk of Complication if Not Cared For in Hospital
--- NOTE | 2018-06-20 18:13 | Progress Note ---
Provider Note Provider Note: ID Consult Note Asked by Pharmacy to review patient's chart. Pt not seen or examined. Reviewed provider reports, labs, VS, imaging reports. 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 PMH includes seizure d/ o and inability to verbally communicate. On presentation, pt was found to have hypotension. No fever. Supple neck, dry oral mucosa, no tachypnea and clear lungs and good O2 saturation, NT/ND abdomen, no back tenderness, moderate contractures throughout all extremities, no rashes, resting tremor and restlessness were documented on initial exams by ED provider and admitting physician. Initial labs revealed SYLVESTER and metabolic acidosis, azotemia, elevated lactic acid, normal total WBC count but bandemia. Normal LFTs. U/A showed no leukocyte esterase and only 5 wbc/hpf. CXR showed no acute radiographic finding. Empirically, Rocephin 1 g daily was started along with PO Vancomycin for possible CDI, pending further evaluation. BCx drawn on 06/17 were negative. UCx on 06/17 was negative. PO vancomycin was discontinued on 06/19/18. At this point, bandemia, lactic acidosis, SYLVESTER have resolved. Hypotension also is reported to have resolved. Pt has also been evaluated by Cardiology and is being treated as an NSTEMI with conservative management given EKG changes, elevated CK-MB and troponin that were also found during admission. Impression/Recommendations - Most cases of acute diarrhea are caused by viruses. Depending on the bacterial etiology, Rocephin may or may not even be effective. It is difficult to suggest a duration of therapy for Rocephin without having an underlying infectious etiology identified. In a patient with severe diarrhea with need for hospitalization getting stool culture to look for common bacterial causes would be indicated, but considering patient has already had Rocephin for 3 days at this point, and particularly if diarrhea has already resolved, I do not think stool culture would be likely to be helpful now. - Other etiologies: No infection likely with negative U/A and UCx. BCx negative. CXR negative, no tachypnea, clear lungs, no desaturation/hypoxia. Exam is documented as unrevealing/negative. - Agree with plan to discontinue Rocephin if no infectious etiology identified, which has indeed been the case. Recommend stopping Rocephin and observing patient. Daron Mei MD [facility] pager [phone]
--- NOTE | 2018-06-20 18:53 | PDOC PROGRESS REPORT ---
Subjective Progress Note for:: 06/20/18 Subjective:: Patient seems to be doing somewhat better and is showing some improvement in general status. Patient remains poorly responsive. Patient however noted to be comfortable laying flat in bed. Patient not noted to have fever chills. Patient does not seem to be in any other significant discomfort. Maintaining sinus rhythm. System review: No significant changes Medications reviewed. Reason For Visit: SEPTIC SHOCK, SYLVESTER, DIARRHEA Physical Exam Vital Signs: Temp Pulse Resp BP Pulse Ox 98.0 F 70 16 99/59 L 100 06/20/18 15:22 06/20/18 15:22 06/20/18 15:22 06/20/18 15:22 06/20/18 15:22 Intake & Output 06/19/18 06/20/18 06/21/18 06:59 06:59 06:59 Intake Total 3773 4088 786 Output Total 2730 3385 3000 Balance 1043 703 -2214 Weight 52.3 kg 51 kg Exam: GENERAL: well-nourished and in no acute distress. Patient is poorly responsive and not oriented to place time or person. HEAD: Atraumatic, normocephalic. EYES: Pupils equal round and reactive to light, extraocular movements intact, sclera anicteric, conjunctiva are normal. ENT: TMs normal, nares patent, oropharynx clear without exudates. Moist mucous membranes. No oral ulcerations or bleeding gums noted NECK: supple without lymphadenopathy or JVD. Trachea is central. No cervical or axillary lymphadenopathy noted. Carotids are 2+ LUNGS: Breath sounds bibasilar fine crackles at bases. No significant dullness noted. CHEST: Palpation of chest wall shows no significant chest wall tenderness. HEART: [place] [employer], No PSH, 2/6 JADEN aortic area, 1/6 bradford systolic murmur mitral area, rubs or gallops. ABDOMEN: Soft, no significant tenderness appreciated, normoactive bowel sounds. No guarding, no rebound. No rigidity noted . No masses appreciated. EXTREMITIES: Pedal pulses are 1-2+, no calf tenderness noted, Trace + pedal edema noted. No clubbing or cyanosis. NEUROLOGICAL: Patient is alert but is not able to participate in neurological exam because of patient's current mental status PSYCH: Patient cannot participate in a neurologic and psych exam because of the patient's current mental status SKIN: No significant ecchymosis, rash, ulcerations or signs of pruritus noted. MUSCULOSKELETAL EXAM: No significant joint swelling noted. Results Laboratory Results: 06/20/18 06:34 06/20/18 05:00 06/20/18 06/20/18 05:00 06:34 WBC 4.5 RBC 3.13 L Hgb 8.9 L Hct 26.3 L MCV 84 MCH 28.4 MCHC 33.8 RDW 15.0 H Plt Count 324 Seg Neutrophils % 46.7 Lymphocytes % 35.2 Monocytes % 14.4 H Eosinophils % 3.5 Basophils % 0.2 Absolute Neutrophils 2.1 Absolute Lymphocytes 1.6 Absolute Monocytes 0.6 Absolute Eosinophils 0.2 Absolute Basophils 0.0 Sodium 138.8 Potassium 3.4 L Chloride 110 H Carbon Dioxide 21 L Anion Gap 8 BUN 5 L Creatinine 0.52 Est GFR ( Amer) > 60 Est GFR (Non-Af Amer) > 60 Glucose 78 Calcium 8.1 L Magnesium 1.4 L 06/17/18 06/17/18 06/18/18 20:55 20:55 01:00 Creatine Kinase 403 H CK-MB (CK-2) 16.50 H Troponin I 0.763 1.310 06/18/18 06/18/18 06/18/18 01:00 01:00 05:15 Creatine Kinase 499 H 446 H CK-MB (CK-2) 21.60 H Troponin I 06/18/18 06/19/18 06/19/18 05:15 05:55 05:55 Creatine Kinase 349 H CK-MB (CK-2) 20.20 H 14.90 H Troponin I 1.550 0.251 EKG Comments: Telemetry shows sinus rhythm. Impressions: Chest X-Ray 06/17/18 12:34 IMPRESSION: NO ACUTE RADIOGRAPHIC FINDING IN THE CHEST. KUB X-Ray 06/18/18 09:48 IMPRESSION: NG tube overlying stomach. Assessment & Plan - Diagnosis (1) Acute OK Qualifiers: Myocardial infarction type: unspecified Is this a current diagnosis for this admission?: Yes (2) Hypotension Qualifiers: Hypotension type: unspecified hypotension type Qualified Code(s): I95.9 - Hypotension, unspecified Is this a current diagnosis for this admission?: Yes (3) Septic shock Is this a current diagnosis for this admission?: Yes (4) Traumatic brain injury Qualifiers: Encounter type: sequela Is this a current diagnosis for this admission?: Yes - Notes Notes: Good patient currently is stable. Agree with management plans mentioned by Dr. Moreira. If patient recommend adding low-dose SHIRLEY inhibitor/ARB to the regimen. If no active bleeding, recommend adding Plavix to the regimen. Will continue to follow with you. Overall prognosis guarded due to overall poor baseline status. - Time Time with patient: 15-25 minutes - More than 50% of the time spent coordinating care, discussing management plans with involved caregivers. Management plans discussed with involved personnels. Medical decision making was of moderate to high complexity, patient's has multiple comorbidities. Medications reviewed and adjusted accordingly: Yes
[2018-06-20] MEDS: RISPERIDONE 1 MG TAB.RAPDIS NG SCH (22:12)
[2018-06-21] MEDS: NITROGLYCERIN 2% OINTMENT 1 GM PACKET TP SCH ×2 (05:13→14:42)
[2018-06-21] MEDS: NORMAL SALINE 1000 ML 1,000 ML IV PRN ×2 (05:14→11:33)
[2018-06-21 05:18] LABS: ABSOLUTE RETICS # 0.042 10^6/uL (0.028-0.122); RETICULOCYTE COUNT (AUTO) 1.25 % (0.66-2.85)
[2018-06-21 06:14] LABS: IRON(TIBC) < 10.1 ug/dL (49-181)
[2018-06-21 06:40] LABS: FOLATE 5.41 ng/mL (>2.76)
[2018-06-21 08:36] LABS: ABSOLUTE EOSINOPHILS # (AUTO) 0.2 10^3/uL (0.0-0.6); ABSOLUTE LYMPHOCYTES (AUTO) 1.5 10^3/uL (0.5-4.7); ABSOLUTE MONOCYTES (AUTO) 0.8 10^3/uL (0.1-1.4); ABSOLUTE NEUT (AUTO) 2.4 10^3/uL (1.7-8.2); BASOPHILS % (AUTO) 0.2 % (0-2); EOSINOPHILS % (AUTO) 3.4 % (0-6); HEMOGLOBIN 9.8 g/dL (13.5-17.0); LYMPHOCYTES % (AUTO) 31.1 % (13-45); MEAN CORPUSCULAR HEMOGLOBIN 29.2 pg (27.0-33.4); MEAN CORPUSCULAR VOLUME 84 fl (80-97); PLATELET COUNT 364 10^3/uL (150-450); RED BLOOD COUNT 3.35 10^6/uL (4.35-5.55); RED CELL DISTRIBUTION WIDTH 14.6 % (11.5-14.0); SEGMENTED NEUTROPHILS % (AUTO) 49.3 % (42-78); TOTAL CELLS COUNTED % (AUTO) 100 %; WHITE BLOOD COUNT 4.8 10^3/uL (4.0-10.5)
[2018-06-21 08:46] LABS: ANION GAP 11 (5-19); BLOOD UREA NITROGEN 9 mg/dL (7-20); CALCIUM 8.6 mg/dL (8.4-10.2); CARBON DIOXIDE 22 mmol/L (22-30); CHLORIDE 106 mmol/L (98-107); GLUCOSE 101 mg/dL (75-110); POTASSIUM 3.7 mmol/L (3.6-5.0); SODIUM 138.6 mmol/L (137-145)
--- NOTE | 2018-06-21 10:22 | PDOC TRANSFER SUMMARY ---
General - Admit/Disc Date/PCP Admission Date/Primary Care Provider: 06/17/18 18:51 YARELIS POST MD Discharge Date: 06/21/18 - Discharge Diagnosis (1) Septic shock Is this a current diagnosis for this admission?: Yes (2) Acute MA Is this a current diagnosis for this admission?: Yes (3) ARF (acute renal failure) Is this a current diagnosis for this admission?: Yes (4) Diarrhea Is this a current diagnosis for this admission?: Yes (5) Hypotension Is this a current diagnosis for this admission?: Yes (6) Protein-calorie malnutrition, severe Is this a current diagnosis for this admission?: Yes (7) Anemia Is this a current diagnosis for this admission?: Yes Summary: Patient given IV Iron in hospital and started on PO Iron. His Iron store was 10 (8) Hypomagnesemia Is this a current diagnosis for this admission?: Yes (9) Traumatic brain injury Is this a current diagnosis for this admission?: Yes - Additional Information Resuscitation Status: Full Code Discharge Diet: Cardiac Discharge Activity: Activity As Tolerated Prescriptions: Cefuroxime Axetil [Ceftin 250 mg Tablet] 1 tab PO BID #6 tablet Isosorbide Mononitrate [Imdur 30 mg Tablet.er] 30 mg PO DAILY #30 tab.er.24h Home Medications: Aspirin [Aspirin 81 mg Chewable Tablet] 81 mg PO DAILY 06/18/18 Atorvastatin Calcium [Lipitor 80 mg Tablet] 80 mg PO DAILY 06/18/18 Benztropine Mesylate [Cogentin 1 mg Tablet] 1 mg PO Q8 06/18/18 Guaifenesin [Robitussin Syrup 200 mg/10 ml Ud Cup] 200 mg PO Q4HP PRN MDD 6 DOSES/24HR 06/18/18 Lacosamide [Vimpat] 200 mg PO Q12 06/18/18 Mirtazapine 7.5 mg PO QHS 06/18/18 [place]-3 Fatty Acids/Fish Oil [[place] 3 Fish Oil Softgel] 1 each PO TID 06/18/18 Ondansetron [Zofran Odt 4 mg Tablet] 4 mg PO Q4HP PRN 06/18/18 Pantoprazole Sodium [Protonix] 40 mg PO DAILY 06/18/18 Polyethylene Glycol 3350 [Miralax Powder 17 gm/Packet] 1 packet PO DAILYP PRN Risperidone [Risperidone Odt] 2 mg PO QHS 06/18/18 Cefuroxime Axetil [Ceftin 250 mg Tablet] 1 tab PO BID #6 tablet 06/21/18 Isosorbide Mononitrate [Imdur 30 mg Tablet.er] 30 mg PO DAILY #30 tab.er.24h 06/29 Metoprolol Tartrate [Lopressor 25 mg Tablet] 12.5 mg PO Q12 tablet 06/21/18 History of Present Illness Admission Date/PCP: 06/17/18 18:51 YARELIS POST MD History of Present Illness: NALDO LESTER JR is a 37 year old male Patient presents to the emergency room apparently after having been sent from [facility]. Patient has had diarrhea for the past 3 days. Patient unfortunately is noncommunicative, deaf blind and has a history of seizures and unable to provide any information. When I got to the emergency room patient was found to be hypotensive with his blood pressure as low as about 70. He did appear to be moving his head though although he could not communicate. I instructed the nurse to start patient on vasopressor. He would need to be admitted to the intensive care unit. Patient apparently has traumatic brain injury however further information about all of these not available Hospital Course Hospital Course: Patient was admitted with what appeared to be septic shock. He was hypotensive and he apparently had had diarrhea prior to admission to the hospital however patient has had no diarrhea while in hospital. He was started on vasopressors due to the profound hypotension. He was monitored in the intensive care unit. Patient actually responded very well to fluids as well as Levophed which was discontinued within 24 hours of admission. He was also in acute renal failure with his initial creatinine at 2.69 and currently at 0.5. Initial BUN was 57 and it is currently 9. Patient was started on empiric ceftriaxone although no specific source of infection was identified. He was also found to have elevated cardiac enzymes and patient was thought to have an acute non-ST elevation myocardial infarction. It is unclear if this is really the primary cause of his hypotension since really no definitive source of infection was identified although this is a secondary to a presumed infection. He was evaluated by cardiology and due to patient's poor functional status and comorbid status conservative management is advised. Patient has been placed on Inderal in addition to beta-blockers and aspirin as well as statin. He may need an SHIRLEY inhibitor and Plavix however I would leave this to outpatient follow -up with cardiology to determine if this should be started. Patient just recovered from acute kidney injury At this time patient has been hemodynamically stable. He appears to be back at his baseline and would no further interventions been planned he is been discharged back to nursing facility. Patient's condition remains very poor due to his comorbidities, his traumatic brain injury and protein calorie malnutrition which will have a negative impact on his recovery and overall prognosis Physical Exam Vital Signs: Temp Pulse Resp BP Pulse Ox 98.0 F 65 18 131/78 H 100 06/21/18 04:23 06/21/18 04:23 06/21/18 04:23 06/21/18 04:23 06/21/18 04:23 Intake & Output 06/20/18 06/21/18 06/22/18 06:59 06:59 06:59 Intake Total 4088 3696 Output Total 3385 4275 Balance 703 -579 Weight 51 kg 54.7 kg General appearance: PRESENT: thin, other - Undernourished chronically ill looking Head exam: PRESENT: atraumatic Eye exam: PRESENT: other Ear exam: PRESENT: other - Teeth exam: PRESENT: poor dentation Respiratory exam: PRESENT: clear to auscultation judson. ABSENT: rales, rhonchi, wheezes Cardiovascular exam: PRESENT: RRR. ABSENT: diastolic murmur, rubs, systolic murmur GI/Abdominal exam: PRESENT: normal bowel sounds, soft. ABSENT: distended, guarding, mass, organolmegaly, rebound, tenderness Neurological exam: PRESENT: altered, other - Noncommunicative Focused psych exam: PRESENT: restlessness Results Laboratory Results: 06/21/18 04:55 06/21/18 04:55 06/21/18 06/21/18 06/21/18 04:55 04:55 04:55 WBC RBC Hgb Hct MCV MCH MCHC RDW Plt Count Seg Neutrophils % Lymphocytes % Monocytes % Eosinophils % Basophils % Absolute Neutrophils Absolute Lymphocytes Absolute Monocytes Absolute Eosinophils Absolute Basophils Retic Count (auto) 1.25 Absolute Retic 0.042 Sodium 138.6 Potassium 3.7 Chloride 106 Carbon Dioxide 22 Anion Gap 11 BUN 9 Creatinine 0.55 Est GFR ( Amer) > 60 Est GFR (Non-Af Amer) > 60 Glucose 101 Calcium 8.6 Magnesium 1.9 Iron < 10.1 L TIBC 256 % Saturation UNABLE TO CALCULATE Ferritin 41.00 Vitamin B12 537.0 Folate 5.41 06/21/18 04:55 WBC 4.8 RBC 3.35 L Hgb 9.8 L Hct 28.0 L MCV 84 MCH 29.2 MCHC 35.0 RDW 14.6 H Plt Count 364 Seg Neutrophils % 49.3 Lymphocytes % 31.1 Monocytes % 16.0 H Eosinophils % 3.4 Basophils % 0.2 Absolute Neutrophils 2.4 Absolute Lymphocytes 1.5 Absolute Monocytes 0.8 Absolute Eosinophils 0.2 Absolute Basophils 0.0 Retic Count (auto) Absolute Retic Sodium Potassium Chloride Carbon Dioxide Anion Gap BUN Creatinine Est GFR ( Amer) Est GFR (Non-Af Amer) Glucose Calcium Magnesium Iron TIBC % Saturation Ferritin Vitamin B12 Folate 06/17/18 06/17/18 06/18/18 20:55 20:55 01:00 Creatine Kinase 403 H CK-MB (CK-2) 16.50 H Troponin I 0.763 1.310 06/18/18 06/18/18 06/18/18 01:00 01:00 05:15 Creatine Kinase 499 H 446 H CK-MB (CK-2) 21.60 H Troponin I 06/18/18 06/19/18 06/19/18 05:15 05:55 05:55 Creatine Kinase 349 H CK-MB (CK-2) 20.20 H 14.90 H Troponin I 1.550 0.251 Impressions: Chest X-Ray 06/17/18 12:34 IMPRESSION: NO ACUTE RADIOGRAPHIC FINDING IN THE CHEST. KUB X-Ray 06/18/18 09:48 IMPRESSION: NG tube overlying stomach. Transfer Plan - Disposition Transfer Plan: [facility] - Time Spent with Patient Time spent with patient: Greater than 30 Minutes Qualifiers - * PATIENT BEING DISCHARGED WITH ANY OF THE FOLLOWING DIAGNOSIS: MA MA Pt being discharged on Aspirin therapy?: Yes MA Pt being discharged on Statins?: Yes MA Pt discharged ACEI/ARBS?: No Reason(s) for not prescribing ACEI/ARBS:: Medical Contraindication
[2018-06-21] MEDS ORDERED: IRON SUCROSE COMPLEX INJ/PF 100 MG/5 ML SDV IV ONE (11:00)
[2018-06-21] MEDS: LACOSAMIDE 100 MG TABLET NG SCH (11:34)
[2018-06-21] MEDS: ATORVASTATIN CALCIUM 80 MG TABLET NG SCH (11:35)
[2018-06-21] MEDS: ASPIRIN 81 MG TABLET, CHEWABLE NG SCH (11:35)
[2018-06-21] MEDS: METOPROLOL TARTRATE 25 MG TABLET PO SCH (11:36)
[2018-06-21] MEDS: ENOXAPARIN SODIUM INJ 30 MG/0.3 ML DISP.SYRIN SUBCUT SCH (11:37)
[2018-06-21 14:18] VITALS: BP 129/84
== END 2018-06-21 19:42 | DRG 871 ==
LOC: ER 12:07 → EH 18:51 → ICU 21:38 → 5 06-19 17:56
PROVIDERS: ADMIT Internal Medicine; ATTEND Internal Medicine
PROC: 02HV33Z Insertion of Infusion Device into Superior Vena Cava, Percutaneous Approach (ICD-10-PCS; principal; 2018-06-17)
PROC: B548ZZA Ultrasonography of Superior Vena Cava, Guidance (ICD-10-PCS; 2018-06-17)
PROC: 0DH673Z Insertion of Infusion Device into Stomach, Via Natural or Artificial Opening (ICD-10-PCS; 2018-06-18)
DX: A41.9 Sepsis, unspecified organism (principal); R65.21 Severe sepsis with septic shock; E43 Unspecified severe protein-calorie malnutrition; I21.4 Non-ST elevation (NSTEMI) myocardial infarction; N17.9 Acute kidney failure, unspecified; Z68.1 Body mass index [BMI] 19.9 or less, adult; E86.0 Dehydration; H54.8 Legal blindness, as defined in USA; G40.909 Epilepsy, unspecified, not intractable, without status epilepticus; H91.3 Deaf nonspeaking, not elsewhere classified; I69.398 Other sequelae of cerebral infarction; I10 Essential (primary) hypertension; F32.9 Major depressive disorder, single episode, unspecified; F03.90 Unspecified dementia, unspecified severity, without behavioral disturbance, psychotic disturbance, mood disturbance, and anxiety; Z87.820 Personal history of traumatic brain injury; E83.42 Hypomagnesemia; D64.9 Anemia, unspecified; Z78.1 Physical restraint status
CPT/HCPCS: 36415; 71045; 74018; 80048; 80053; 81001; 82550; 82553; 82607; 82728; 82746; 83540; 83550; 83605; 83735; 84484; 85025; 85045; 87040; 87086; 93005; 93010; C1751; J0696; J1650; J1756; J3370; J3475; J3490; J7030; J7060

== ENCOUNTER 2018-06-22 19:45 | Emergency (ER) | payer MEDICAID ==
[2018-06-22] MEDS ORDERED: LIDOCAINE 0.5%/EPINEPHRINE INJ 50 ML VIAL INJ ONE (20:36)
--- NOTE | 2018-06-22 21:53 | ER Document Report ---
ED General - General Stated Complaint: FALL/LACERATION Time Seen by Provider: 06/22/18 20:01 Mode of Arrival: Stretcher Information source: Emergency Med Personnel TRAVEL OUTSIDE OF THE [place] IN LAST 30 DAYS: No - HPI Patient complains to provider of: Laceration of the eye Onset: Other - This is a 37-year-old a phasic man who has markedly diminished functional status as a result of a previous stroke in the past as well as recurrent seizures that presents for evaluation of mechanical fall today which resulted in him hitting the left side of his head with a small laceration as a result. Denying any seizure preceding the event, trauma elsewhere, any altered mental status or change in behavior. Denies any blood thinner use. - Related Data Allergies/Adverse Reactions: No Known Allergies Allergy (Verified 06/17/18 13:11) Past Medical History - General Information source: Emergency Med Personnel - Social History Smoking Status: Unknown if Ever Smoked Family History: Other - Unable to obtain secondary to TBI mentation - Past Medical History Cardiac Medical History: Reports: Hx Hypertension Pulmonary Medical History: Neurological Medical History: Reports: Hx Cerebrovascular Accident, Hx Seizures Renal/ Medical History: Reports: Hx Renal Insufficiency. Denies: Hx Peritoneal Dialysis GI Medical History: Reports: Hx Ulcer Musculoskeletal Medical History: Psychiatric Medical History: Reports: Hx Dementia, Hx Depression Past Surgical History: Reports: Other - Unknown - Immunizations Hx Diphtheria, Pertussis, Tetanus Vaccination: Yes Hx Pneumococcal Vaccination: 09/15/09 Review of Systems - Review of Systems -: Yes All other systems reviewed and negative Physical Exam - Vital signs Interpretation: Normal - General General appearance: Alert, Anxious In distress: Mild - HEENT Head: Other - Small laceration and hematoma of the left eye, 2 cm in length, Eyes: Normal Conjunctiva: Normal Cornea: Normal Extraocular movements intact: Yes Pupils: PERRL - Respiratory Respiratory status: No respiratory distress Chest status: Nontender Breath sounds: Normal Chest palpation: Normal - Cardiovascular Rhythm: Regular Heart sounds: Normal auscultation Murmur: No - Abdominal Inspection: Normal Distension: No distension Tenderness: Nontender Organomegaly: No organomegaly - Back Back: Normal - Extremities General upper extremity: Normal inspection, Nontender, Normal ROM, Normal strength General lower extremity: Normal inspection, Nontender, Normal ROM, Normal strength - Neurological Neuro grossly intact: No Cognition: Inattentive Orientation: Disoriented to person, Disoriented to place, Disoriented to time, Disoriented to events [place] Coma Scale Eye Opening: Spontaneous Tin Coma Scale Verbal: None [place] Coma Scale Motor: Localizes to Pain [place] Coma Scale Total: 10 Speech: Expressive aphasia Cranial nerves: Normal Motor strength normal: LUE, RUE, LLE, RLE - Psychological Associated symptoms: Other - markedly diminished insight Course - Re-evaluation Re-evalutation: 06/22/18 23:13 37-year-old male that presents for evaluation of laceration over the left eye. On examination the patient has a small cut over the left eye, it is 3 cm in length patient has no systemic signs have more serious underlying intracranial injury. We will repair primarily. Laceration repaired utilizing stitches after administration of topical lidocaine. Hemostasis was achieved with direct pressure. Patient remained at his baseline level of functioning in the emergency department. Plan for this patient undergo discharge with return precautions and instructions to remove sutures in 7 days. Procedures - Laceration/Wound Repair Left Face Wound length (cm): 3 Wound's Depth, Shape: Superficial, Linear Anesthetic type: Other - let Wound Debrided: Minimal Wound Repaired With: Sutures Suture Size/Type: 4:0, Prolene Number of Sutures: 3 Layer Closure?: No Discharge - Discharge Clinical Impression: Laceration Head ache Qualifiers: Headache type: other headache syndrome Qualified Code(s): G44.89 - Other headache syndrome Condition: Good Disposition: HOME-SNF (ED ONLY) Instructions: Laceration Care ([facility]), Soap Cleansing ([facility]) Additional Instructions: Return in 6-7 days to have the sutures removed. Return for any worsening bleeding, drainage from the wound which looks like it may be pus. Referrals: YARELIS POST MD [Primary Care Provider] - Follow up as needed
[2018-06-22] MEDS ORDERED: DIPH/PERTUSS(ACELL)/TETANUS VAC/PF 0.5 ML SYR (>=10YO) IM ONE (21:57)
[2018-06-23 04:06] VITALS: BP 141/75
== END 2018-06-23 04:06 ==
LOC: ER 19:45
PROC: 0HQ1XZZ Repair Face Skin, External Approach (ICD-10-PCS; principal; 2018-06-22)
DX: S01.81XA Laceration without foreign body of other part of head, initial encounter (principal); G44.89 Other headache syndrome; W01.190A Fall on same level from slipping, tripping and stumbling with subsequent striking against furniture, initial encounter; I10 Essential (primary) hypertension
CPT/HCPCS: 99284

== ENCOUNTER 2018-11-19 15:41 | Emergency (ER) | payer MEDICAID ==
[2018-11-19] MEDS ORDERED: ASPIRIN 81 MG TABLET, CHEWABLE PO ONE (16:08)
[2018-11-19 16:46] LABS: ABSOLUTE BASOPHILS # (AUTO) 0.1 10^3/uL (0.0-0.2); ABSOLUTE EOSINOPHILS # (AUTO) 0.1 10^3/uL (0.0-0.6); ABSOLUTE MONOCYTES (AUTO) 0.5 10^3/uL (0.1-1.4); ABSOLUTE NEUT (AUTO) 4.7 10^3/uL (1.7-8.2); EOSINOPHILS % (AUTO) 2.1 % (0-6); HEMOGLOBIN 13.4 g/dL (13.5-17.0); MEAN CORPUSCULAR HEMOGLOBIN 27.4 pg (27.0-33.4); MEAN CORPUSCULAR HGB CONC 33.6 g/dL (32.0-36.0); MEAN CORPUSCULAR VOLUME 82 fl (80-97); MONOCYTES % (AUTO) 7.8 % (3-13); PLATELET COUNT 383 10^3/uL (150-450); RED BLOOD COUNT 4.89 10^6/uL (4.35-5.55); RED CELL DISTRIBUTION WIDTH 15.7 % (11.5-14.0); SEGMENTED NEUTROPHILS % (AUTO) 74.1 % (42-78); TOTAL CELLS COUNTED % (AUTO) 100 %; WHITE BLOOD COUNT 6.4 10^3/uL (4.0-10.5)
[2018-11-19 17:00] LABS: ALANINE AMINOTRANSFERASE 28 U/L (21-72); ALBUMIN 5.1 g/dL (3.5-5.0); ALKALINE PHOSPHATASE 62 U/L (38-126); ASPARTATE AMINO TRANSFERASE 42 U/L (17-59); BILIRUBIN,DIRECT 0.2 mg/dL (0.0-0.4); BILIRUBIN,TOTAL 0.5 mg/dL (0.2-1.3); BLOOD UREA NITROGEN 20 mg/dL (7-20); CALCIUM 10.6 mg/dL (8.4-10.2); CREATINE KINASE 600 U/L (55-170); GLUCOSE 81 mg/dL (75-110); POTASSIUM 4.2 mmol/L (3.6-5.0); TOTAL PROTEIN 8.4 g/dL (6.3-8.2)
[2018-11-19 17:05] LABS: CARBON DIOXIDE 20 mmol/L (22-30); CHLORIDE 97 mmol/L (98-107); SODIUM 139.2 mmol/L (137-145)
[2018-11-19 17:07] LABS: ANION GAP 22 (5-19)
[2018-11-19 17:12] LABS: CREATINE KINASE MB 13.1 ng/mL (<4.55)
[2018-11-19 17:17] LABS: TROPONIN I 0.159 ng/mL
--- NOTE | 2018-11-19 17:34 | ER Document Report ---
ED General - General Stated Complaint: FALL/HEAD INJURY Time Seen by Provider: 11/19/18 16:01 Primary Care Provider: YARELIS POST MD [Primary Care Provider] - Follow up as needed Mode of Arrival: Wheelchair Information source: [facility] Records, Outside Facility Records Cannot obtain history due to: Mentally challenged, Altered mental status Notes: 38-year-old male with hypertension, traumatic brain injury who is blind, nonverbal at baseline has chronic tremors and shakes and history of frequent falls presents after a witnessed trip and fall just prior to arrival from her [facility] via EMS. Nursing reported that the patient stood up and tripped over his feet falling backwards striking his head. She denies loss of consciousness. She denies seizure-like activity. TRAVEL OUTSIDE OF THE [place] IN LAST 30 DAYS: No - HPI Onset: Just prior to arrival Onset/Duration: Sudden - Related Data Allergies/Adverse Reactions: No Known Allergies Allergy (Verified 06/17/18 13:11) Past Medical History - General Information source: [facility] Records, Outside Facility Records Cannot obtain history due to: Mentally challenged, Altered mental status - Social History Smoking Status: Unknown if Ever Smoked Family History: Other - Unable to obtain secondary to TBI mentation - Past Medical History Cardiac Medical History: Reports: Hx Hypertension Pulmonary Medical History: Neurological Medical History: Reports: Hx Cerebrovascular Accident, Hx Seizures Renal/ Medical History: Reports: Hx Renal Insufficiency. Denies: Hx Peritoneal Dialysis GI Medical History: Reports: Hx Ulcer Musculoskeletal Medical History: Psychiatric Medical History: Reports: Hx Dementia, Hx Depression Past Surgical History: Reports: Other - Unknown - Immunizations Hx Diphtheria, Pertussis, Tetanus Vaccination: Yes Hx Pneumococcal Vaccination: 09/15/09 Review of Systems - Review of Systems -: Yes ROS unobtainable due to patient's medical condition Physical Exam - Vital signs Vitals: Resp BP 18 170/103 H 11/19/18 15:50 11/19/18 15:50 - Notes Notes: PHYSICAL EXAMINATION: GENERAL: Well-appearing, well-nourished and in no acute distress. C-collar in place HEAD: Small right-sided parietal cephalhematoma with superficial abrasion mild bleeding. No gaping laceration. EYES: Pupils equal round and reactive to light, extraocular movements intact, sclera anicteric, conjunctiva are normal. ENT: Nares patent, oropharynx clear without exudates. Moist mucous membranes. No hemanotympanum . No blood in nares. No dental fracture NECK: Normal range of motion, supple without lymphadenopathy. Trachea midline LUNGS: Breath sounds clear to auscultation bilaterally and equal. No wheezes rales or rhonchi. HEART: Regular rate and rhythm without murmurs. Pulses intact all throughout. ABDOMEN: Soft, nontender, nondistended abdomen. No guarding, no rebound. No masses appreciated. Musculoskeletal: Normal range of motion, no pitting or edema. No cyanosis. Hip non tender, stable. NEUROLOGICAL: Nonverbal at baseline. Awake, alert. Shaking of the right hand. Does not follow commands. PSYCH: Cooperative SKIN: Superficial abrasion to the right parietal scalp. Course - Re-evaluation Re-evalutation: Cervical Spine CT 11/19/18 00:00 IMPRESSION: NO ACUTE OR SIGNIFICANT FINDINGS IN THE CERVICAL SPINE. Head CT 11/19/18 00:00 IMPRESSION: CHRONIC CHANGES OF ATROPHY AND MICROVASCULAR ISCHEMIA. SCALP HEMATOMA RIGHT PARIETAL REGION. EVIDENCE OF ACUTE STROKE: NO. Chest X-Ray 11/19/18 16:08 IMPRESSION: No acute disease. Laboratory 11/19/18 11/19/18 11/19/18 16:33 16:33 16:33 WBC 6.4 RBC 4.89 Hgb 13.4 L Hct 40.0 MCV 82 MCH 27.4 MCHC 33.6 RDW 15.7 H Plt Count 383 Seg Neutrophils % 74.1 Lymphocytes % 15.0 Monocytes % 7.8 Eosinophils % 2.1 Basophils % 1.0 Absolute Neutrophils 4.7 Absolute Lymphocytes 1.0 Absolute Monocytes 0.5 Absolute Eosinophils 0.1 Absolute Basophils 0.1 Sodium 139.2 Potassium 4.2 Chloride 97 L Carbon Dioxide 20 L Anion Gap 22 H BUN 20 Creatinine 0.91 Est GFR ( Amer) > 60 Est GFR (Non-Af Amer) > 60 Glucose 81 Calcium 10.6 H Total Bilirubin 0.5 Direct Bilirubin 0.2 Neonat Total Bilirubin Not Reportable Neonat Direct Bilirubin Not Reportable Neonat Indirect Bili Not Reportable AST 42 ALT 28 Alkaline Phosphatase 62 Creatine Kinase 600 H CK-MB (CK-2) 13.10 H Troponin I 0.159 Total Protein 8.4 H Albumin 5.[address] 11/19/18 00:00 IMPRESSION: NO ACUTE OR SIGNIFICANT FINDINGS IN THE CERVICAL SPINE. Head CT 11/19/18 00:00 IMPRESSION: CHRONIC CHANGES OF ATROPHY AND MICROVASCULAR ISCHEMIA. SCALP HEMATOMA RIGHT PARIETAL REGION. EVIDENCE OF ACUTE STROKE: NO. Chest X-Ray 11/19/18 16:08 IMPRESSION: No acute disease. 11/19/18 19:[address] Moreira regarding the patient's chronically elevated troponin. Previous medical records reviewed and patient is not a candidate for any intervention. He is currently medically maximized. Upon his last discharge his troponin was elevated and higher than it is today. Patient is nonverbal at baseline due to a previous CVA and traumatic brain injury. Patient does have a superficial abrasion to his scalp which is oozing but without any gaping. Area was irrigated. CT of the head shows chronic changes and a right parietal scalp hematoma. Cervical spine CT is without acute findings. Chest x-ray within normal limits. 11/19/18 19:10 Patient's next of kin was contacted and message was left. I was not able to verbally speak with them. Patient will be transferred back to his nursing facility. on reevaluation patient is in no distress. He appears to be smiling. Patient will be discharged back to [facility]. 11/19/18 19:45 11/19/18 19:50 11/19/18 22:08 - Vital Signs Vital signs: Temp Pulse Resp BP Pulse Ox 20 155/99 H 100 11/19/18 20:01 11/19/18 20:01 11/19/18 20:01 - Laboratory Result Diagrams: 11/19/18 16:33 11/19/18 16:33 Laboratory results interpreted by me: 11/19/18 11/19/18 11/19/18 16:33 16:33 16:33 Hgb 13.4 L RDW 15.7 H Chloride 97 L Carbon Dioxide 20 L Anion Gap 22 H Calcium 10.6 H Creatine Kinase 600 H CK-MB (CK-2) 13.10 H Total Protein 8.4 H Albumin 5.1 H - Diagnostic Test Radiology reviewed: Image reviewed, Reports reviewed - EKG Interpretation by Co EKG shows normal: Sinus rhythm, ST-T Waves - ST elevation in leads V1. Diffuse T wave inversion unchanged from previous Rate: Normal - Patient has ST elevation in V1 and mild elevation in V2 and diffuse T wave inversions in the remaining leads which is unchanged from his previous EKG on his last admission on June 17, 2018. When compared to previous EKG there are: No significant change Discharge - Discharge Clinical Impression: Chronically elevated troponin, Do not intubate, cardiopulmonary resuscitation (CPR)-only code status, History of traumatic brain injury, History of CVA (cerebrovascular accident) Fall Qualifiers: Encounter type: initial encounter Qualified Code(s): W19.XXXA - Unspecified fall, initial encounter Scalp abrasion Qualifiers: Encounter type: initial encounter Qualified Code(s): S00.01XA - Abrasion of scalp, initial encounter Scalp hematoma Qualifiers: Encounter type: initial encounter Qualified Code(s): S00.03XA - Contusion of scalp, initial encounter Hypertension Qualifiers: Hypertension type: unspecified Qualified Code(s): I10 - Essential (primary) hypertension Condition: Fair Disposition: SNF-Other Instructions: Scalp Hematoma ([facility]) Additional Instructions: You have likely sustained a contusion (bruise) to your head. If you had a CT scan done, it did not show any evidence of serious injury or bleeding. Symptoms to expect from a concussion include nausea, mild to moderate headache, difficulty concentrating or sleeping, and mild lightheadedness. These symptoms should improve over the next few days to weeks. Return to the emergency department or follow-up with your primary care doctor if your symptoms are not improving over this time. Signs of a more serious head injury include vomiting, severe headache, excessive sleepiness or confusion, and weakness or numbness in your face, arms or legs. Return immediately to the Emergency Department if you experience any of these more concerning symptoms. Rest, avoid strenuous physical or mental activity, and avoid activities that could potentially result in another head injury until all your symptoms from this head injury are completely resolved for at least 2-3 weeks. If you participate in sports, get cleared by your doctor or operational trainer before returning to play. You may take ibuprofen or acetaminophen over the counter according to label instructions for mild headache or scalp soreness. Referrals: YARELIS POST MD [Primary Care Provider] - Follow up as needed
--- NOTE | 2018-11-19 18:22 | RADIOLOGY REPORT (SQ) ---
EXAM DESCRIPTION: CHEST SINGLE VIEW COMPLETED DATE/TIME: 11/19/2018 6:02 pm REASON FOR STUDY: altered COMPARISON: 06/02/2016. EXAM PARAMETERS: NUMBER OF VIEWS: One view. TECHNIQUE: Single frontal radiographic view of the chest acquired. RADIATION DOSE: NA LIMITATIONS: None. FINDINGS: LUNGS AND PLEURA: No acute infiltrates or effusions. MEDIASTINUM AND HILAR STRUCTURES: No masses. Contour normal. HEART AND VASCULAR STRUCTURES: Normal heart and pulmonary vasculature. BONES: No acute findings. HARDWARE: None in the chest. OTHER: No other significant finding. IMPRESSION: No acute disease. TECHNICAL DOCUMENTATION: JOB ID: [id number] 2010 [employer]- All Rights Reserved Reading location - IP/workstation name: [email or web address]
--- NOTE | 2018-11-19 18:41 | RADIOLOGY REPORT (SQ) ---
EXAM DESCRIPTION: CT CERVICAL SPINE WITHOUT COMPLETED DATE/TIME: 11/19/2018 6:00 pm REASON FOR STUDY: bed 12 s/p fall with head lac per dr potter COMPARISON: None. TECHNIQUE: Axial images acquired through the cervical spine without intravenous contrast. Images re viewed with lung, soft tissue and bone windows. Reconstructed coronal and sagittal MPR images review ed. Images stored on PACS. All CT scanners at this facility use dose modulation, iterative reconstruction, and/or weight based d osing when appropriate to reduce radiation dose to as low as reasonably achievable (ALARA). [facility]: Dose Right [facility]: CareDose [facility]: Dose Right [facility]: Teradose 4D [facility]: Smart [employer] RADIATION DOSE: CT Rad equipment meets quality standard of care and radiation dose reduction techniq ues were employed. CTDIvol: 9.4 mGy. DLP: 251 mGy-cm. mGy. LIMITATIONS: None. FINDINGS: ALIGNMENT: Anatomic. MINERALIZATION: Normal. 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 No acute fracture. DISCS: No significant disc disease. FACETS, LATERAL MASSES, POSTERIOR ELEMENTS: No fractures. No dislocation. No acute findings. HARDWARE: None in the spine. VISUALIZED RIBS: No fractures. LUNG APICES AND SOFT TISSUES: No significant or acute findings. OTHER: No other significant finding. IMPRESSION: NO ACUTE OR SIGNIFICANT FINDINGS IN THE CERVICAL SPINE. TECHNICAL DOCUMENTATION: JOB ID: [id number] Quality ID # [id number]: Final reports with documentation of one or more dose reduction techniques (e.g., Au tomated exposure control, adjustment of the mA and/or kV according to patient size, use of iterative reconstruction technique) 2010 [employer]- All Rights Reserved Reading location - IP/workstation name: [email or web address]
--- NOTE | 2018-11-19 18:47 | RADIOLOGY REPORT (SQ) ---
EXAM DESCRIPTION: CT HEAD WITHOUT COMPLETED DATE/TIME: 11/19/2018 6:00 pm REASON FOR STUDY: bed 12 s/p fall with head lac per dr potter COMPARISON: 11/10/2017. 12/02/2011. TECHNIQUE: Axial images acquired through the brain without intravenous contrast. Images reviewed wi th bone, brain and subdural windows. Images stored on PACS. All CT scanners at this facility use dose modulation, iterative reconstruction, and/or weight based d osing when appropriate to reduce radiation dose to as low as reasonably achievable (ALARA). [facility]: Dose Right [facility]: CareDose [facility]: Dose Right [facility]: Teradose 4D [facility]: Smart [employer] RADIATION DOSE: CT Rad equipment meets quality standard of care and radiation dose reduction techniq ues were employed. CTDIvol: 55.2 mGy. DLP: 1250 mGy-cm.mGy. LIMITATIONS: None. FINDINGS: VENTRICLES: Prominent. CEREBRUM: Cortical atrophy. There is again evidence of encephalomalacia of right and left temporal occipital parietal regions. No hemorrhage. No midline shift. Areas of low density in the white mat ter most likely due to chronic micro-vascular ischemic change. No evidence for acute infarction. CEREBELLUM: No masses. No hemorrhage. No alteration of density. No evidence for acute infarction. EXTRAAXIAL SPACES: Age-related involutional change. No fluid collections. No masses. ORBITS AND GLOBE: No intra- or extraconal masses. Normal contour of globe without masses. CALVARIUM: No fracture. PARANASAL SINUSES: Minimal chronic ethmoid sinusitis. SOFT TISSUES: Scalp hematoma over right parietal region. . IMPRESSION: CHRONIC CHANGES OF ATROPHY AND MICROVASCULAR ISCHEMIA. SCALP HEMATOMA RIGHT PARIETAL REGION. EVIDENCE OF ACUTE STROKE: NO. TECHNICAL DOCUMENTATION: JOB ID: [id number] Quality ID # [id number]: Final reports with documentation of one or more dose reduction techniques (e.g., Au tomated exposure control, adjustment of the mA and/or kV according to patient size, use of iterative reconstruction technique) 2010 [employer]- All Rights Reserved Reading location - IP/workstation name: [email or web address]
[2018-11-19 22:35] VITALS: BP 170/91
--- NOTE | 2018-11-20 01:26 | EKG REPORT ---
SEVERITY:- ABNORMAL ECG - SINUS RHYTHM PROBABLE LEFT ATRIAL ABNORMALITY CONSIDER ANTEROSEPTAL INFARCT ABNORMAL T, CONSIDER ISCHEMIA, DIFFUSE LEADS : Confirmed by: Ramandeep Moreira MD 20-Nov-2018 01:25:24
== END 2018-11-19 22:36 ==
LOC: ER 15:41
DX: S00.01XA Abrasion of scalp, initial encounter (principal); S00.03XA Contusion of scalp, initial encounter; R79.89 Other specified abnormal findings of blood chemistry; I10 Essential (primary) hypertension; W01.10XA Fall on same level from slipping, tripping and stumbling with subsequent striking against unspecified object, initial encounter; Z86.73 Personal history of transient ischemic attack (TIA), and cerebral infarction without residual deficits
CPT/HCPCS: 36415; 70450; 71045; 72125; 80053; 82550; 82553; 84484; 85025; 93005; 93010; 99285